=== PATIENT | male | born 1950 | race Caucasian/White ===

== ENCOUNTER 2018-07-20 10:33 | Inpatient (IN) | payer OTHER, SELFPAY ==
[2018-07-20] VITALS (16 sets, daily range): BP systolic 102–163; BP diastolic 46–83; PULSE 64–118; RESP 12–24; TEMP 36.3–39.3; O2SAT 91–97; BMI 30.4
--- NOTE | 2018-07-20 12:16 | PC.NURSE ---
pt reports, cramping lower abdominal pain while going to the bathroom, denies fever,vomiting, last bm yesterday. last voided at 8am. 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 denies injury or trauma hernia above umbilical, cholecystectomy, appendix, tonsillectomy.
--- NOTE | 2018-07-20 12:17 | ED_ITS ---
HPI - Abdominal Pain General Chief Complaint: Abdominal Pain Stated Complaint: CRAMPS,CONSTIPATION,NOT URINATING Time Seen by Provider: 07/20/18 11:47 Source: patient Mode of arrival: ambulatory Limitations: no limitations History of Present Illness HPI narrative: Patient is a 68-year-old male who presents with lower abdominal pain. He says he woke up this morning with it. It is sharp and stabbing in nature nonradiating. It crosses the whole abdomen. He did have a bowel movement yesterday thinks he might be constipated. No fever chills nausea or vomiting. Related Data Allergies Allergy/AdvReac Type Severity Reaction Status Date / Time No Known Drug Allergies Allergy Verified 07/20/18 10:41 Review of Systems Review of Systems ROS Unobtainable: All systems reviewed & are unremarkable except as noted in HPI and below Constitutional Denies chills, Denies fever(s), Denies lethargy and Denies weakness ENT Ears, Nose, Mouth, and Throat: Denies change in voice, Denies neck pain and Denies sore throat Cardiovascular Denies chest pain, Denies irregular heart rhythm, Denies lightheadedness, Denies palpitations, Denies dyspnea, Denies dyspnea on exertion and Denies orthopnea Respiratory Denies cough, Denies dyspnea, Denies dyspnea on exertion and Denies wheezing Gastrointestinal Gastrointestinal: Reports as per HPI Genitourinary Denies hematuria, Denies flank pain, Denies urinary incontinence and Denies urinary urgency Musculoskeletal Denies neck pain Integumentary/Breasts Denies pruritus, Denies erythema, Denies rash and Denies wounds Neurologic Denies weakness Endocrine Denies palpitations Allergic/Immunologic Denies wheezing [facility] Medical History Atrophic kidney, acquired (Acute) Benign prostatic hyperplasia (Acute) Diverticulitis (Acute) GERD (gastroesophageal reflux disease) (Acute) Hyperlipidemia (Acute) Kidney stones (Acute) Surgical History History of appendectomy (Acute) History of colonoscopy (Acute) History of umbilical hernia repair (Acute) Status post cholecystectomy (Acute) Social History Smoking Status: Former smoker Social History household members: significant other Smoking Status: Former smoker alcohol intake: never Exam Initial Vital Signs Initial Vital Signs: Vital Signs Temperature 97.3 F L 07/20/18 10:36 Pulse Rate 87 07/20/18 10:36 Respiratory Rate 17 07/20/18 10:36 Blood Pressure 146/83 H 07/20/18 10:36 Pulse Oximetry 97 07/20/18 10:36 GENERAL: Alert alert well-appearing male alert oriented x3 HEENT: Head atraumatic,EOMI, pupils reactive, CARDIOVASCULAR: Regular rate and rhythm without murmurs, rubs or gallops. RESPIRATORY: Breath sounds equal bilaterally, no wheezes rales or rhonchi. ABDOMEN: Soft, slightly distended lower abdominal tenderness no guarding no rebound : No CVA tenderness EXTREMITIES: Normal range of motion, no clubbing or edema. Neurovascularly intact NEUROLOGICAL: Alert and oriented x4.Normal gait and speech. SKIN: Warm, dry, no laceration, no petechiae, no rashes or lesions. Course Orders Ordered: ED Orders 07/20/18 12:37 CT abdomen pelvis w con Stat 07/20/18 12:40 UA Complete [Urinalysis and Microscopic] Stat 07/20/18 12:50 Complete Blood Count AUTO DIFF Stat Comprehensive Metabolic Panel Stat Lipase Stat 07/20/18 16:08 Education, smoking cessation ONGOING 07/20/18 16:13 Consult to Discharge Planning Routine 07/20/18 17:42 EKG-12 Lead Stat 07/21/18 XR abdomen min 2V Routine 07/21/18 05:00 Basic Metabolic Panel Routine Complete Blood Count AUTO DIFF Routine Acetaminophen (Tylenol) 650 mg PO Q6HR PRN PRN Reason: As Needed for Fever/Mild Pain Al Hydrox/Mg Hydrox/Simethicone (Maalox Plus) 30 ml PO Q6HR PRN PRN Reason: Dyspepsia Enoxaparin Sodium (Lovenox) 40 mg SUBCUT DAILY LENARD HYDROMORPHONE CIVIL DESIGNER (6MG/30ML) (Dilaudid Eyewear Manufacturing Tech (6mg/30ml)) 6 mg in 30 mls @ 0 mls/hr IV Q8HR PRN PRN Reason: Pain, Severe (7-10) Last Admin: 07/20/18 18:12 Dose: 0 mls/hr Sodium Chloride (Normal Saline 0.9%) 1,000 mls @ 100 mls/hr IV CONT LENARD Last Admin: 07/20/18 17:36 Dose: Not Given Piperacillin/Tazobactam/Dextrose (Zosyn) 3.375 gm in 50 mls @ 100 mls/hr IV Q6H LENARD Metronidazole (Flagyl) 500 mg in 100 mls @ 100 mls/hr IV Q8H LENARD Magnesium Hydroxide (Milk Of Magnesia) 30 ml PO DAILY PRN PRN Reason: Constipation Naloxone HCl (Narcan) 0.2 mg IV Q2MIN PRN; Protocol PRN Reason: Opiate Reversal Ondansetron HCl (Zofran) 4 mg IV Q6HR PRN PRN Reason: Nausea And Vomiting Discontinued Medications Sodium Chloride (Normal Saline 0.9%) 1,000 mls @ 150 mls/hr IV CONT LENARD Last Infusion: 07/20/18 16:58 Dose: 100 mls/hr Infusion: 07/20/18 16:45 Dose: 150 mls/hr Infusion: 07/20/18 14:00 Dose: 150 mls/hr Infusion: 07/20/18 13:46 Dose: 0 mls/hr Admin: 07/20/18 12:23 Dose: 150 mls/hr Piperacillin/Tazobactam/Dextrose (Zosyn) 3.375 gm in 50 mls @ 100 mls/hr IV NOW ONE Stop: 07/20/18 15:13 Last Infusion: 07/20/18 15:35 Dose: 0 mls/hr Admin: 07/20/18 15:02 Dose: 100 mls/hr Metronidazole (Flagyl) 500 mg in 100 mls @ 100 mls/hr IV NOW ONE Stop: 07/20/18 15:43 Last Infusion: 07/20/18 16:45 Dose: 0 mls/hr Admin: 07/20/18 15:49 Dose: 100 mls/hr Morphine Sulfate (Morphine) 2 mg IV NOW ONE Stop: 07/20/18 12:18 Last Admin: 07/20/18 12:23 Dose: 2 mg Morphine Sulfate (Morphine) 2 mg IV NOW ONE Stop: 07/20/18 15:07 Last Admin: 07/20/18 15:07 Dose: 2 mg Vital Signs - 8 hr 07/20/18 10:36 07/20/18 12:15 07/20/18 12:50 Temperature 97.3 F L Pulse Rate 87 70 72 Respiratory Rate 17 18 Blood Pressure 146/83 H Blood Pressure [Left Arm] 142/80 H 145/73 H Pulse Oximetry 97 95 97 07/20/18 13:00 07/20/18 13:30 07/20/18 14:18 Temperature Pulse Rate 67 64 88 Respiratory Rate 16 16 12 Blood Pressure Blood Pressure [Left Arm] 146/73 H 134/65 146/70 H Pulse Oximetry 97 97 96 07/20/18 15:00 07/20/18 16:00 07/20/18 17:22 Temperature 100.3 F H Pulse Rate 101 H 107 H 112 H Respiratory Rate 16 18 24 Blood Pressure 163/68 H Blood Pressure [Left Arm] 144/72 H 129/72 Pulse Oximetry 95 94 95 MDM - Abdominal Pain Lab Data Attestation: I reviewed the patient's lab results. Result diagrams: 07/20/18 12:50 07/20/18 12:50 Lab Results 07/20/18 07/20/18 07/20/18 Range/Units 12:40 12:50 12:50 WBC 13.9 H (4.5-11.0) X10^3/uL RBC 4.65 (4.5-5.9) X10^6/uL Hgb 13.9 (13.5-17.5) g/dL Hct 41.9 (41-53) % MCV 90.0 (80-100) fL MCH 29.8 (26-34) PG MCHC 33.1 (30-36) % RDW 14.5 (11.6-14.8) % Plt Count 220 (150-400) X10^3/uL Neut % (Auto) 84.2 H (50-75) % Lymph % (Auto) 9.2 L (25-40) % [place] % (Auto) 6.0 (3-14) % Eos % (Auto) 0.3 L (2-4) % Baso % (Auto) 0.3 (0-2) % Neut # (Auto) 56312 H (9655-5796) /uL Lymph # (Auto) 1300 (9643-2781) /uL [place] # (Auto) 800 (0-900) /uL Eos # (Auto) 0 (0-450) /uL Baso # (Auto) 0 (0-100) /uL Sodium 138 (137-145) mmol/L Potassium 4.6 (3.4-5.1) mmol/L Chloride 102 (98-107) mmol/L Carbon Dioxide 26 (22-32) mmol/L BUN 14 (9-20) mg/dL Creatinine 0.90 (0.66-1.25) mg/dL Estimated GFR > 60.0 (>60) mL/min BUN/Creatinine Ratio 15.6 (6-22) Glucose 104 (80-110) mg/dL Calcium 9.2 (8.4-10.2) mg/dL Total Bilirubin 0.4 (0.2-1.3) mg/dL AST 22 (17-59) IU/L ALT 26 (21-72) IU/L Alkaline Phosphatase 49 (38-126) U/L Total Protein 7.1 (6.3-8.2) g/dL Albumin 4.1 (3.5-5.0) g/dL Globulin 3.0 (1.7-4.1) g/dL Albumin/Globulin Ratio 1.4 (1.0-2.8) Lipase 20 L (23-300) U/L Urine Color Yellow Urine Appearance Clear Urine pH 7.0 (4.5-8.0) Ur Specific [place] 1.015 (1.000-1.035) Urine Protein Negative (Negative) Urine Glucose (UA) Negative (Negative) g/dL Urine Ketones Negative (NEGATIVE) Urine Occult Blood Negative (Negative) Urine Nitrate Negative (Negative) Urine Bilirubin Negative (NEGATIVE) Urine Urobilinogen 0.2 (0.2) E.U./dL Ur Leukocyte Esterase Negative (NEGATIVE) Urine RBC None seen (0-5/HPF) Urine WBC 0-1/hpf (0-5/HPF) Urine Bacteria Few (2-10) H (None) Ur Culture Indicated? Cult not indicated Imaging Data CT scan - abdomen: Radiologist's impression: PROCEDURE: CT ABDOMEN PELVIS W CON INDICATIONS: Lower abdominal pain since 0800 hrs this morning TECHNIQUE: After the administration of intravenous contrast, 5 mm thick sections acquired from the diaphragm to the symphysis. 5 mm coronal and sagittal reformats were acquired. For radiation dose reduction, the following was used: automated exposure control, adjustment of mA and/or kV according to patient size. COMPARISON: None. FINDINGS: Image quality: Excellent. ABDOMEN: Lung bases: Calcified pleural plaques are present bilaterally, in a distribution compatible with asbestos related pleural disease. Lung bases are otherwise clear. Heart size is normal. Solid organs: Liver is normal in size and enhancement. Gallbladder is surgically absent. Biliary system is non dilated. Pancreas enhances normally. Spleen is normal in size and enhancement. No adrenal nodules. Right kidney is within normal limits. Left kidney is not seen. Peritoneum and bowel: A small hiatal hernia is present. The small bowel is within normal limits. The appendix is normal. The colon demonstrates moderate diffuse stool, and is nondistended. Diverticulosis of the descending and sigmoid colon is present. At the left lateral aspect of the mid/distal sigmoid colon within the central pelvis, there is a 35 mm diameter stool collection, representing either a focal contained perforation, or a giant diverticulum. There is mild fat stranding and a small amount of adjacent fluid in this location, indicating surrounding inflammation. There is mild thickening of the sigmoid colon in this location. No free fluid or air. Nodes and vessels: No retroperitoneal or mesenteric adenopathy by size criteri a. Aorta and inferior vena cava are normal in size. Miscellaneous: No ventral hernias. PELVIS: Genitourinary: A Lee catheter is present. Miscellaneous: No inguinal hernias or adenopathy. Bones: No suspicious bony lesions. No vertebral body compression fractures. IMPRESSION: 1. Giant diverticulum of the sigmoid colon versus contained perforation of the sigmoid colon, with surrounding inflammation. 2. Sigmoid colonic thickening, consistent with diverticulitis. Followup colonoscopy is recommended to exclude underlying malignancy. 3. Small hiatal hernia. 4. Asbestos related pleural disease. 5. Findings discussed with Dr. Boswell on 07.20.18 at 1405 hrs. Dictated by: Travis Segura M.D. on 07/20/2018 at 14:03 MDM Narrative Medical decision making narrative: patient does seem quite stoic however morphine did he seem to help with his pain. CT reveals large diverticulitis versus contained perforation. I discussed case with surgery. Dr. Plata in the ED to see and evaluate patient . Recommend Joana Colon for antibiotics. Will likely need reimaging tomorrow to determine perforation versus large diverticuli. Discharge Plan Departure Patient Disposition: Admitted As Inpatient Clinical Impression: Diverticulitis Discharge Date/Time: 07/20/18 16:38 Interventions: ED Discharge Assessment Last Done: 07/20/18 16:36 Admit Date/Time: 07/20/18 14:58 Admit Provider: Kelby Plata
[2018-07-20] MEDS: SODIUM CHLORIDE 0.9% 1,000 ML 150 ML IV (12:23)
[2018-07-20] MEDS: MORPHINE 2 MG/ML INJ IV ×2 (12:23→15:07)
--- NOTE | 2018-07-20 12:37 | DI.CT.S_ITS ---
PROCEDURE: CT ABDOMEN PELVIS W CON INDICATIONS: Lower abdominal pain since 0800 hrs this morning TECHNIQUE: After the administration of intravenous contrast, 5 mm thick sections acquired from the diaphragm to the symphysis. 5 mm coronal and sagittal reformats were acquired. For radiation dose reduction, the following was used: automated exposure control, adjustment of mA and/or kV according to patient size. COMPARISON: None. FINDINGS: Image quality: Excellent. ABDOMEN: Lung bases: Calcified pleural plaques are present bilaterally, in a distribution compatible with asbestos related pleural disease. Lung bases are otherwise clear. Heart size is normal. Solid organs: Liver is normal in size and enhancement. Gallbladder is surgically absent. Biliary system is non dilated. Pancreas enhances normally. Spleen is normal in size and enhancement. No adrenal nodules. Right kidney is within normal limits. Left kidney is not seen. Peritoneum and bowel: A small hiatal hernia is present. The small bowel is within normal limits. The appendix is normal. The colon demonstrates moderate diffuse stool, and is nondistended. Diverticulosis of the descending and sigmoid colon is present. At the left lateral aspect of the mid/distal sigmoid colon within the central pelvis, there is a 35 mm diameter stool collection, representing either a focal contained perforation, or a giant diverticulum. There is mild fat stranding and a small amount of adjacent fluid in this location, indicating surrounding inflammation. There is mild thickening of the sigmoid colon in this location. No free fluid or air. Nodes and vessels: No retroperitoneal or mesenteric adenopathy by size criteria. Aorta and inferior vena cava are normal in size. Miscellaneous: No ventral hernias. PELVIS: Genitourinary: A Lee catheter is present. Miscellaneous: No inguinal hernias or adenopathy. Bones: No suspicious bony lesions. No vertebral body compression fractures. IMPRESSION: 1. Giant diverticulum of the sigmoid colon versus contained perforation of the sigmoid colon, with surrounding inflammation. 2. Sigmoid colonic thickening, consistent with diverticulitis. Followup colonoscopy is recommended to exclude underlying malignancy. 3. Small hiatal hernia. 4. Asbestos related pleural disease. 5. Findings discussed with Dr. Boswell on 07.20.18 at 1405 hrs. Dictated by: Travis Segura M.D. on 07/20/2018 at 14:03 Approved by: Travis Segura M.D. on 07/20/2018 at 14:11
[2018-07-20 13:01] LABS: Add Manual Diff / Slide Review NO; Basophils Absolute Auto 0 /uL (0-100); Basophils Percent Auto 0.3 % (0-2); Eosinophils Absolute Auto 0 /uL (0-450); Eosinophils Percent Auto 0.3 % (2-4); Hematocrit 41.9 % (41-53); Hemoglobin 13.9 g/dL (13.5-17.5); Lymphocytes Absolute Auto 1300 /uL (1100-4500); Lymphocytes Percent Auto 9.2 % (25-40); Mean Corpuscular HGB Conc 33.1 % (30-36); Mean Corpuscular Hemoglobin 29.8 PG (26-34); Monocytes Absolute Auto 800 /uL (0-900); Neutrophils Absolute Auto 11700 /uL (1500-7000); Neutrophils Percent Auto 84.2 % (50-75); Platelet Count 220 X10^3/uL (150-400); Red Blood Cell Count 4.65 X10^6/uL (4.5-5.9); Red Cell Distribution Width 14.5 % (11.6-14.8); White Blood Cell Count 13.9 X10^3/uL (4.5-11.0)
[2018-07-20 13:09] LABS: Alanine Aminotransferase 26 IU/L (21-72); Albumin 4.1 g/dL (3.5-5.0); Albumin Globulin Ratio 1.4 (1.0-2.8); Alkaline Phosphatase 49 U/L (38-126); Aspartate Aminotransferase 22 IU/L (17-59); BUN Creatinine Ratio 15.6 (6-22); Bilirubin Total 0.4 mg/dL (0.2-1.3); Blood Urea Nitrogen 14 mg/dL (9-20); Calcium 9.2 mg/dL (8.4-10.2); Carbon Dioxide 26 mmol/L (22-32); Chloride 102 mmol/L (98-107); Estimated Glomerular Filt Rate > 60.0 mL/min (>60); Glucose 104 mg/dL (80-110); HEMOLYSIS 24 (0-50); Lipase 20 U/L (23-300); Potassium 4.6 mmol/L (3.4-5.1); Sodium 138 mmol/L (137-145); Total Protein 7.1 g/dL (6.3-8.2)
[2018-07-20 13:48] LABS: Appearance Urine UA CLEAR; Bilirubin Urine UA NEGATIVE (NEGATIVE); Color Urine UA YELLOW; Glucose Urine UA NEGATIVE (Negative); Ketones Urine UA NEGATIVE (NEGATIVE); Leukocyte Esterase Urine UA NEGATIVE (NEGATIVE); Nitrite Urine UA NEGATIVE (Negative); Occult Blood Urine UA NEGATIVE (Negative); Protein Urine UA NEGATIVE (Negative); RBC Urine None Seen (0-5/HPF); Specific Gravity Urine UA 1.015 (1.000-1.035); Urobilinogen Urine UA 0.2 E.U./dL (0.2)
[2018-07-20 14:03] LABS: Bacteria Urine Few (2-10); WBC Urine 0-1/HPF (0-5/HPF)
[2018-07-20 14:04] LABS: Culture Indicated Urine Cult Not Indicated
--- NOTE | 2018-07-20 14:26 | PC.NURSE ---
last solid meal at 8am today.
[2018-07-20] MEDS: PIPERACILLIN-TAZO 3.375 GM/50 ML FROZ.PIGGY IV ×2 (15:02→22:12)
[2018-07-20] MEDS: metroNIDAZOLE 500 MG/100 ML PIGGYBACK 100 MG IV ×2 (15:49→23:48)
--- NOTE | 2018-07-20 16:31 | P.HP_ITS ---
History of Present Illness Date Patient Seen: 07/20/18 Time Patient Seen: 16:17 Chief complaint: CRAMPS,CONSTIPATION,NOT URINATING Narrative: 68-year-old male who was in his usual state of health this morning after an otherwise uneventful night sleep when he began to experience severe crampy bilateral lower quadrant abdominal pain. He awoke in drank his usual morning cup of coffee then ambulated to the bathroom for a bowel movement, but noticed that he was unable to pass flatus or stool at that time. In addition he also experienced acute urinary retention and was unable to empty his bladder. His pain became acutely more severe and progressed over the next 1-2 hours which prompted his presentation to the emergency department here at [facility]. Lee catheter was inserted at the time of admission with only about 200 cc of clear urine obtained. His pain persisted. On further history currently patient states that he is having no fever or chills. No chest pain or shortness of breath. Pain is described as quite constant throughout the lower pelvis but does not radiate to the back or down the legs. No groin pain. He has not passed any flatus at all since this morning. He is not currently nauseated. He has had no emesis. In fact, he would like something to drink and perhaps something like to eat. He does not feel subjectively distended throughout the abdomen. Nevertheless is pain has only improved to some extent with medications here in the emergency department. Pain increases slightly when he is ambulatory. No fever or rigors. He has never had any type of similar episodes in the past. Patient History Medical History Atrophic kidney, acquired (Acute) Benign prostatic hyperplasia (Acute) Diverticulitis (Acute) GERD (gastroesophageal reflux disease) (Acute) Hyperlipidemia (Acute) Kidney stones (Acute) Surgical History History of appendectomy (Acute) History of colonoscopy (Acute) History of umbilical hernia repair (Acute) Status post cholecystectomy (Acute) Social History Smoking Status: Former smoker Family & Social History Safety & Behavioral: Feels Safe in Current Yes Environment Been Physically Hurt or No Threatened By a Person Tobacco & Substance use: Smoking Status Former smoker alcohol intake frequency other Substance Use Type does not use Meds Allergies Allergy/AdvReac Type Severity Reaction Status Date / Time No Known Drug Allergies Allergy Verified 07/20/18 10:41 Review of Systems Review of Systems All systems reviewed & are unremarkable except as noted in HPI and below Exam Vital Signs (past 8 hours): - 07/20/18 10:36 07/20/18 12:50 07/20/18 14:18 Temperature 97.3 F L Pulse Rate 87 72 88 Respiratory Rate 17 12 Blood Pressure 146/83 H Blood Pressure [Left Arm] 145/73 H 146/70 H Pulse Oximetry 97 97 96 Oxygen Delivery Method Room Air Narrative Exam Narrative: Well-nourished well-developed male in no acute distress. Alert oriented x3. is at the bedside for my entire visit. Sclera nonicteric Neck is supple Chest clear to auscultation bilaterally with regular rate rhythm. No murmurs, gallops, rubs. No crackles or wheezes Abdomen is minimally distended but certainly not tympanitic. No masses. No hepatomegaly. No ascites. Well-healed periumbilical scar without obvious hernia. He is tender throughout the bilateral lower quadrants but more intensely on the left side. He does not have involuntary guarding or rebound however. Extremities show no clubbing or cyanosis Objective Labs Result Diagrams: 07/20/18 12:50 07/20/18 12:50 Labs: Laboratory Results - last 24 hr 07/20/18 07/20/18 07/20/18 12:40 12:50 12:50 WBC 13.9 H RBC 4.65 Hgb 13.9 Hct 41.9 MCV 90.0 MCH 29.8 MCHC 33.1 RDW 14.5 Plt Count 220 Neut % (Auto) 84.2 H Lymph % (Auto) 9.2 L [place] % (Auto) 6.0 Eos % (Auto) 0.3 L Baso % (Auto) 0.3 Neut # (Auto) 69861 H Lymph # (Auto) 1300 [place] # (Auto) 800 Eos # (Auto) 0 Baso # (Auto) 0 Sodium 138 Potassium 4.6 Chloride 102 Carbon Dioxide 26 BUN 14 Creatinine 0.90 Estimated GFR > 60.0 BUN/Creatinine Ratio 15.6 Glucose 104 Calcium 9.2 Total Bilirubin 0.4 AST 22 ALT 26 Alkaline Phosphatase 49 Total Protein 7.1 Albumin 4.1 Globulin 3.0 Albumin/Globulin Ratio 1.4 Lipase 20 L Urine Color Yellow Urine Appearance Clear Urine pH 7.0 Ur Specific [place] 1.015 Urine Protein Negative Urine Glucose (UA) Negative Urine Ketones Negative Urine Occult Blood Negative Urine Nitrate Negative Urine Bilirubin Negative Urine Urobilinogen 0.2 Ur Leukocyte Esterase Negative Urine RBC None seen Urine WBC 0-1/hpf Urine Bacteria Few (2-10) H Ur Culture Indicated? Cult not indicated I have personally reviewed his CT scan of the abdomen and pelvis done here in the emergency department with the staff radiologist. No free air. No hepatomegaly. No splenomegaly. No significant mesenteric or retroperitoneal lymphadenopathy. Atherosclerotic calcified disease of the aortoiliac system but with no significant stenoses. Left kidney is completely atrophic and essentially absent. Right kidney shows extrarenal pelvis with nonobstructing stone in the calyx. No free fluid. No abscess. Sigmoid colon is quite redundant with numerous diverticula. Mild mesenteric stranding. No air in the mesentery. Bladder has a Lee catheter in place with some air in the bladder consistent with catheterization. Immediately adjacent to the sigmoid colon overlying the dome of the bladder is a contained region of air that appears to be consistent with a large diverticulum or a confined perforation. Again, there is no air elsewhere. No abscess. No other abnormalities noted. Assessment & Plan Assessment & Plan narrative: 68-year-old male with acute sigmoid diverticulitis without obvious abscess or free perforation. No evidence of colovesical fistula. Urine in the Lee bag is completely clear and urinalysis was normal. At this time he has no evidence of obvious complicated diverticulitis, but the finding on the CT scan is somewhat concerning. He is otherwise afebrile and hemodynamically stable without evidence of sepsis. In addition, he has no evidence of peritonitis necessitating urgent laparotomy. Therefore, I have rec ommended that he be admitted for IV antibiotics. Unfortunately we will not be able to administer nephrotoxic medications given his single kidney. We will administer Zosyn and Flagyl and repeat CBC tomorrow. Repeat abdominal x-rays tomorrow. He has no indications for any interventional radiology procedures at this time. If his condition does not respond to the intravenous antibiotics then we will need to repeat his CT scan. I had a lengthy discussion with him regarding the pathophysiology of diverticulitis and natural history of such. He understands there is a possibility he will not respond to the above therapy despite adequate antibiotics at which point he would require laparotomy with colectomy. He also understands that there is a distinct possibility his condition could deteriorate and he would require more urgent surgery for colectomy and drainage. I also explained that he may respond to therapy and return home but in the short term have recurrent diverticulitis necessitating readmission and intervention at that time. Ideally he would respond to antibiotics and eventually be discharged home on an oral regimen with plans for follow-up colonoscopy and, if indicated, potential sigmoid colectomy electively within the next several months. I also clearly explained that should he require emergent surgery this admission that he would almost certainly require ostomy formation at the time of operation. At the very least she will require elective colonoscopy once the acute episode has resolved. All questions were answered to his satisfaction, and he voiced understanding. Orders were written. I anticipate that he will require at least a week in the hospital given the severity of his inflammation.
--- NOTE | 2018-07-20 17:48 | PC.NURSE ---
Addendum entered by Marcie Orellana R.N. 07/20/18 23:01: Approx an hour after admitted temp retaken =102.7, I then medicated him with 2 TYlenol and removed blankets, pt reluctant to have me remove blankets. Rationale explained. Temp retaken 1 hour after tylenol = 102.2. Dr Plata in room to assess patient x 2 since admitted to , aware of temperature and vitals. Last oral temp now 101.5. IV bolus infusing at 250/hour per new order, IV Zosyn infused. Pt still with flushed face, nose/brow diaphoretic. He reports pain 2 or 3, used 1.4 mg [employer] since set up. Reports feels better and able to doze off & on. Original Note: Admit note: Mc brought from ED via gurney, able to scoot himself from [facility], started having moderate full body tremor. Reported felt cold, warm blanket given, temp 100.3, HR regulark, tachycardic at 115 bpm, hypertensive 163/68. ER reported no fever, no tachycardia or hypertension in ER? Pt reports abdomen pain 3/10, much better he said. IV NS infusing at 100 ml/hour, 20 g to RAC is patent. RT now in room to do bedside EKG.
[2018-07-20] MEDS: HYDROMORPHONE PCA (6MG/30ML) 6 MG/30 ML PCA.VIAL IV (18:12)
[2018-07-20] MEDS: ACETAMINOPHEN 325 MG TABLET 650 MG PO (18:38)
--- NOTE | 2018-07-20 20:09 | PM.PN.1 ---
Subjective Date Patient Seen: 07/20/18 Time Patient Seen: 20:09 Interval history: Patient now has a temperature of 102.2? approximately. Earlier temperature was slightly elevated 100.3?. He has also developed sinus tachycardia to as high as 112 beats per minute now approximately 102 beats per minute. 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 No chest pain or shortness of breath. He does have some mild diaphoresis due to the fever. Otherwise he continues to ask for water and regular food to eat. No flatus. No bowel movement. Lee catheter remains in place draining clear yellow urine. Urine output is more than adequate. Exam Vital Signs (past 8 hours): - 07/20/18 12:15 07/20/18 12:50 07/20/18 13:00 Temperature Pulse Rate 70 72 67 Respiratory Rate 18 16 Blood Pressure Blood Pressure [Left Arm] 142/80 H 145/73 H 146/73 H Pulse Oximetry 95 97 97 07/20/18 13:30 07/20/18 14:18 07/20/18 15:00 Temperature Pulse Rate 64 88 101 H Respiratory Rate 16 12 16 Blood Pressure Blood Pressure [Left Arm] 134/65 146/70 H 144/72 H Pulse Oximetry 97 96 95 07/20/18 16:00 07/20/18 17:22 07/20/18 18:38 Temperature 100.3 F H 102.7 F H Pulse Rate 107 H 112 H Respiratory Rate 18 24 Blood Pressure 163/68 H Blood Pressure [Left Arm] 129/72 Pulse Oximetry 94 95 07/20/18 19:03 07/20/18 19:50 Temperature 102.7 F H 101.6 F H Pulse Rate 111 H 118 H Respiratory Rate 20 20 Blood Pressure 146/77 H 131/46 L Blood Pressure [Left Arm] Pulse Oximetry 91 91 Oxygen Delivery Method Room Air Narrative Exam Narrative: I have actually seen the patient twice since admission. I 1st saw him again at 6:00 p.m. and now again at 8:00 p.m. Alert and oriented x3. He appears mildly uncomfortable but in no acute distress. No tachypnea No crackles or wheezes abdomen remains mildly distended and firm but not rigid. He is soft but with ongoing moderate tenderness throughout the bilateral lower quadrants, left greater than right. Slightly tender in the periumbilical region as well. Again, he has no involuntary guarding or rebound tenderness. He is not particularly tympanitic. He does not have any evidence of peritoneal irritation with shaking of his pelvis or manipulation of his lower extremities Objective Labs Result Diagrams: 07/20/18 12:50 07/20/18 12:50 Labs: Laboratory Results - last 24 hr 07/20/18 07/20/18 07/20/18 12:40 12:50 12:50 WBC 13.9 H RBC 4.65 Hgb 13.9 Hct 41.9 MCV 90.0 MCH 29.8 MCHC 33.1 RDW 14.5 Plt Count 220 Neut % (Auto) 84.2 H Lymph % (Auto) 9.2 L [place] % (Auto) 6.0 Eos % (Auto) 0.3 L Baso % (Auto) 0.3 Neut # (Auto) 02758 H Lymph # (Auto) 1300 [place] # (Auto) 800 Eos # (Auto) 0 Baso # (Auto) 0 Sodium 138 Potassium 4.6 Chloride 102 Carbon Dioxide 26 BUN 14 Creatinine 0.90 Estimated GFR > 60.0 BUN/Creatinine Ratio 15.6 Glucose 104 Calcium 9.2 Total Bilirubin 0.4 AST 22 ALT 26 Alkaline Phosphatase 49 Total Protein 7.1 Albumin 4.1 Globulin 3.0 Albumin/Globulin Ratio 1.4 Lipase 20 L Urine Color Yellow Urine Appearance Clear Urine pH 7.0 Ur Specific [place] 1.015 Urine Protein Negative Urine Glucose (UA) Negative Urine Ketones Negative Urine Occult Blood Negative Urine Nitrate Negative Urine Bilirubin Negative Urine Urobilinogen 0.2 Ur Leukocyte Esterase Negative Urine RBC None seen Urine WBC 0-1/hpf Urine Bacteria Few (2-10) H Ur Culture Indicated? Cult not indicated Assessment & Plan Assessment & Plan narrative: 68-year-old male with fever and associated sinus tachycardia. EKG done 2 hr ago showed no acute changes. Tylenol has been given. Because he has a single kidney we must avoid potentially nephrotoxic medications such as Toradol, Advil, and aminoglycosides. He would not be a candidate for vancomycin either. If he requires repeat CT imaging we will need to be cautious with IV contrast. I will increase his hydration with fluid bolus currently and increase his IV fluid rate in light of his fever and single kidney. Continue to follow his examination And repeat laboratory studies tomorrow as planned. again, patient understands that if his condition deteriorates or he shows evidence of peritonitis that he will require laparotomy. All questions were answered to his satisfaction, and he voiced understanding. Case reviewed with the attending nurse. Orders written.
--- NOTE | 2018-07-20 20:16 | P.PN_ITS ---
Subjective Date Patient Seen: 07/20/18 Time Patient Seen: 20:09 Interval history: Patient now has a temperature of 102.2? approximately. Earlier temperature was slightly elevated 100.3?. He has also developed sinus tachycardia to as high as 112 beats per minute now approximately 102 beats per minute. 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 No chest pain or shortness of breath. He does have some mild diaphoresis due to the fever. Otherwise he continues to ask for water and regular food to eat. No flatus. No bowel movement. Lee catheter remains in place draining clear yellow urine. Urine output is more than adequate. Exam Vital Signs (past 8 hours): - 07/20/18 12:15 07/20/18 12:50 07/20/18 13:00 Temperature Pulse Rate 70 72 67 Respiratory Rate 18 16 Blood Pressure Blood Pressure [Left Arm] 142/80 H 145/73 H 146/73 H Pulse Oximetry 95 97 97 07/20/18 13:30 07/20/18 14:18 07/20/18 15:00 Temperature Pulse Rate 64 88 101 H Respiratory Rate 16 12 16 Blood Pressure Blood Pressure [Left Arm] 134/65 146/70 H 144/72 H Pulse Oximetry 97 96 95 07/20/18 16:00 07/20/18 17:22 07/20/18 18:38 Temperature 100.3 F H 102.7 F H Pulse Rate 107 H 112 H Respiratory Rate 18 24 Blood Pressure 163/68 H Blood Pressure [Left Arm] 129/72 Pulse Oximetry 94 95 07/20/18 19:03 07/20/18 19:50 Temperature 102.7 F H 101.6 F H Pulse Rate 111 H 118 H Respiratory Rate 20 20 Blood Pressure 146/77 H 131/46 L Blood Pressure [Left Arm] Pulse Oximetry 91 91 Oxygen Delivery Method Room Air Narrative Exam Narrative: I have actually seen the patient twice since admission. I 1st saw him again at 6:00 p.m. and now again at 8:00 p.m. Alert and oriented x3. He appears mildly uncomfortable but in no acute distress. No tachypnea No crackles or wheezes abdomen remains mildly distended and firm but not rigid. He is soft but with ongoing moderate tenderness throughout the bilateral lower quadrants, left greater than right. Slightly tender in the periumbilical region as well. Again, he has no involuntary guarding or rebound tenderness. He is not particu larly tympanitic. He does not have any evidence of peritoneal irritation with shaking of his pelvis or manipulation of his lower extremities Objective Labs Result Diagrams: 07/20/18 12:50 07/20/18 12:50 Labs: Laboratory Results - last 24 hr 07/20/18 07/20/18 07/20/18 12:40 12:50 12:50 WBC 13.9 H RBC 4.65 Hgb 13.9 Hct 41.9 MCV 90.0 MCH 29.8 MCHC 33.1 RDW 14.5 Plt Count 220 Neut % (Auto) 84.2 H Lymph % (Auto) 9.2 L [place] % (Auto) 6.0 Eos % (Auto) 0.3 L Baso % (Auto) 0.3 Neut # (Auto) 08154 H Lymph # (Auto) 1300 [place] # (Auto) 800 Eos # (Auto) 0 Baso # (Auto) 0 Sodium 138 Potassium 4.6 Chloride 102 Carbon Dioxide 26 BUN 14 Creatinine 0.90 Estimated GFR > 60.0 BUN/Creatinine Ratio 15.6 Glucose 104 Calcium 9.2 Total Bilirubin 0.4 AST 22 ALT 26 Alkaline Phosphatase 49 Total Protein 7.1 Albumin 4.1 Globulin 3.0 Albumin/Globulin Ratio 1.4 Lipase 20 L Urine Color Yellow Urine Appearance Clear Urine pH 7.0 Ur Specific [place] 1.015 Urine Protein Negative Urine Glucose (UA) Negative Urine Ketones Negative Urine Occult Blood Negative Urine Nitrate Negative Urine Bilirubin Negative Urine Urobilinogen 0.2 Ur Leukocyte Esterase Negative Urine RBC None seen Urine WBC 0-1/hpf Urine Bacteria Few (2-10) H Ur Culture Indicated? Cult not indicated Assessment & Plan Assessment & Plan narrative: 68-year-old male with fever and associated sinus tachycardia. EKG done 2 hr ago showed no acute changes. Tylenol has been given. Because he has a single kidney we must avoid potentially nephrotoxic medications such as Toradol, Advil, and aminoglycosides. He would not be a candidate for vancomycin either. If he requires repeat CT imaging we will need to be cautious with IV contrast. I will increase his hydration with fluid bolus currently and increase his IV fluid rate in light of his fever and single kidney. Continue to follow his examination And repeat laboratory studies tomorrow as planned. again, patient understands that if his condition deterior ates or he shows evidence of peritonitis that he will require laparotomy. All questions were answered to his satisfaction, and he voiced understanding. Case reviewed with the attending nurse. Orders written.
[2018-07-20] MEDS: SODIUM CHLORIDE 0.9% 1,000 ML 250 ML IV (20:22)
[2018-07-20] MEDS: TRIAMCINOLONE 0.1% CREAM 15 GM 1 APPLIC TOP (22:13)
[2018-07-21] VITALS (12 sets, daily range): BP systolic 118–125; BP diastolic 58–71; PULSE 80–90; RESP 16; TEMP 36.7–37.1; O2SAT 86–96; BMI 28.9
--- NOTE | 2018-07-21 | DI.RAD.S_ITS ---
PROCEDURE: XR ABDOMEN MIN 2V INDICATIONS: diverticulitis, pain TECHNIQUE: 2 views of the abdomen were acquired. COMPARISON: [facility], CT, CT ABDOMEN PELVIS W CON, 07/20/2018, 13:48. FINDINGS: Surgical changes and devices: None. Bowel: No pneumoperitoneum. The bowel gas pattern is normal. Soft tissues: No masses; visualized solid organ contours appear normal in size. No suspicious abdominal calcifications. Bones: No suspicious bony abnormalities. IMPRESSION: No acute intra-abdominal findings. Specifically, no sandro pneumoperitoneum is visualized in the setting of recently diagnosed perforated diverticulum. Dictated by: Pao Lorenzo M.D. on 07/21/2018 at 9:45 Approved by: Pao Lorenzo M.D. on 07/21/2018 at 9:47
--- NOTE | 2018-07-21 00:15 | PC.NURSE ---
Addendum entered by Jelena Escobar R.N. 07/21/18 03:33: Have been able to titrate back to 2L/min with sat remaining at 96% Original Note: Patient is alert and oriented. Breath sounds diminished but CTA with oxygen at 2L/min with sat of 94% at shift change but now down to 86% while asleep so O2 increased to 3L and will continue to titrate as needed; on continuous pulse oximeter. HRR but tachy in low 100's; telemetry reading was ST. Denies nausea. BT present and is passing a little flatus. Diffuse tenderness to palpation but abdomen remains soft. Indwelling catheter is patent. Able to turn self in bed. Reports prior to hospitalization did not have weakness or unsteadiness and did not use a device to ambulate. SCD's on. Fall risk score is moderate; bed alarm is activated. Previous fever but now afebrile. 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
[2018-07-21] MEDS: SODIUM CHLORIDE 0.9% 1,000 ML 125 ML IV ×3 (00:56→21:06)
[2018-07-21] MEDS: PIPERACILLIN-TAZO 3.375 GM/50 ML FROZ.PIGGY IV ×4 (02:54→21:15)
[2018-07-21 05:55] LABS: Add Manual Diff / Slide Review NO; Basophils Absolute Auto 100 /uL (0-100); Basophils Percent Auto 0.4 % (0-2); Eosinophils Absolute Auto 0 /uL (0-450); Eosinophils Percent Auto 0.2 % (2-4); Hematocrit 38.7 % (41-53); Hemoglobin 12.9 g/dL (13.5-17.5); Lymphocytes Absolute Auto 1300 /uL (1100-4500); Lymphocytes Percent Auto 6.9 % (25-40); Mean Corpuscular HGB Conc 33.2 % (30-36); Mean Corpuscular Hemoglobin 29.8 PG (26-34); Mean Corpuscular Volume 89.7 fL (80-100); Monocytes Absolute Auto 1100 /uL (0-900); Monocytes Percent Auto 5.8 % (3-14); Neutrophils Absolute Auto 15900 /uL (1500-7000); Neutrophils Percent Auto 86.7 % (50-75); Platelet Count 198 X10^3/uL (150-400); Red Blood Cell Count 4.32 X10^6/uL (4.5-5.9); Red Cell Distribution Width 14.7 % (11.6-14.8); White Blood Cell Count 18.3 X10^3/uL (4.5-11.0)
[2018-07-21 06:02] LABS: BUN Creatinine Ratio 12.7 (6-22); Blood Urea Nitrogen 14 mg/dL (9-20); Calcium 8.2 mg/dL (8.4-10.2); Carbon Dioxide 24 mmol/L (22-32); Chloride 105 mmol/L (98-107); Estimated Glomerular Filt Rate > 60.0 mL/min (>60); Glucose 102 mg/dL (80-110); HEMOLYSIS < 15 (0-50); Potassium 4.1 mmol/L (3.4-5.1); Sodium 137 mmol/L (137-145)
[2018-07-21] MEDS: metroNIDAZOLE 500 MG/100 ML PIGGYBACK 100 MG IV ×3 (08:06→23:57)
--- NOTE | 2018-07-21 08:45 | PM.PN.1 ---
Subjective Date Patient Seen: 07/21/18 Time Patient Seen: 08:45 Interval history: Patient states his pain is improved since yesterday. 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 No nausea or vomiting. No chest pain or shortness of breath. However, he did have some desaturations while sleeping consistent with his tobacco use and diverticulitis which makes it somewhat uncomfortable to breathe deeply. However his oxygen saturations currently are 95 and 96%. He is not tachypneic and he feels as if he is inspiring normally. Denies any further subjective fever or chills. No further diaphoresis. States he is beginning to pass some flatus. Remains mildly hungry. Exam Vital Signs (past 8 hours): - 07/21/18 04:00 Temperature 98.3 F Pulse Rate 80 Respiratory Rate 16 Blood Pressure 124/58 L Pulse Oximetry 96 Oxygen Delivery Method Nasal Cannula Oxygen Flow Rate 2 Narrative Exam Narrative: Patient lying in bed in no acute distress. He appears much more comfortable this morning. Alert and oriented x3. His fever curve broke last night and he has been afebrile throughout the evening on overnight shift. Tachycardia has also resolved with resolution of his fever. Current heart rate is in the 80s and sinus rhythm. Urine output remains more than adequate and urine is clear yellow in the bag. Chest clear to auscultation bilaterally although mildly diminished at the bases. No crackles or wheezes however. Regular rate and rhythm. No murmurs. Abdomen shows few hypoactive bowel sounds and he remains soft. He is not significantly distended. Not tympanitic. Remains tender in the bilateral lower quadrant region but more pronounced over the suprapubic area and toward the right lower quadrant. Certainly no signs of peritoneal irritation with shaking of the pelvis or manipulation of his lower extremities. No involuntary guarding or rebound. I appreciate no masses. Extremities show no clubbing, cyanosis, or edema Objective Labs Result Diagrams: 07/21/18 05:29 07/21/18 05:29 Labs: Laboratory Results - last 24 hr 07/20/18 07/20/18 07/20/18 12:40 12:50 12:50 WBC 13.9 H RBC 4.65 Hgb 13.9 Hct 41.9 MCV 90.0 MCH 29.8 MCHC 33.1 RDW 14.5 Plt Count 220 Neut % (Auto) 84.2 H Lymph % (Auto) 9.2 L [place] % (Auto) 6.0 Eos % (Auto) 0.3 L Baso % (Auto) 0.3 Neut # (Auto) 15097 H Lymph # (Auto) 1300 [place] # (Auto) 800 Eos # (Auto) 0 Baso # (Auto) 0 Sodium 138 Potassium 4.6 Chloride 102 Carbon Dioxide 26 BUN 14 Creatinine 0.90 Estimated GFR > 60.0 BUN/Creatinine Ratio 15.6 Glucose 104 Calcium 9.2 Total Bilirubin 0.4 AST 22 ALT 26 Alkaline Phosphatase 49 Total Protein 7.1 Albumin 4.1 Globulin 3.0 Albumin/Globulin Ratio 1.4 Lipase 20 L Urine Color Yellow Urine Appearance Clear Urine pH 7.0 Ur Specific [place] 1.015 Urine Protein Negative Urine Glucose (UA) Negative Urine Ketones Negative Urine Occult Blood Negative Urine Nitrate Negative Urine Bilirubin Negative Urine Urobilinogen 0.2 Ur Leukocyte Esterase Negative Urine RBC None seen Urine WBC 0-1/hpf Urine Bacteria Few (2-10) H Ur Culture Indicated? Cult not indicated 07/21/18 07/21/18 05:29 05:29 WBC 18.3 H RBC 4.32 L Hgb 12.9 L Hct 38.7 L MCV 89.7 MCH 29.8 MCHC 33.2 RDW 14.7 Plt Count 198 Neut % (Auto) 86.7 H Lymph % (Auto) 6.9 L [place] % (Auto) 5.8 Eos % (Auto) 0.2 L Baso % (Auto) 0.4 Neut # (Auto) 06798 H Lymph # (Auto) 1300 [place] # (Auto) 1100 H Eos # (Auto) 0 Baso # (Auto) 100 Sodium 137 Potassium 4.1 Chloride 105 Carbon Dioxide 24 BUN 14 Creatinine 1.10 Estimated GFR > 60.0 BUN/Creatinine Ratio 12.7 Glucose 102 Calcium 8.2 L Total Bilirubin AST ALT Alkaline Phosphatase Total Protein Albumin Globulin Albumin/Globulin Ratio Lipase Urine Color Urine Appearance Urine pH Ur Specific [place] Urine Protein Urine Glucose (UA) Urine Ketones Urine Occult Blood Urine Nitrate Urine Bilirubin Urine Urobilinogen Ur Leukocyte Esterase Urine RBC Urine WBC Urine Bacteria Ur Culture Indicated? Abdominal x-rays are still pending at the time my visit this morning. Assessment & Plan Assessment & Plan narrative: 68-year-old male with significant diverticulitis who currently is improved clinically. His fever has resolved as has his tachycardia, but his white blood cell count is more elevated today at 18,000. Otherwise his laboratory studies were unremarkable. We will continue Zosyn and Flagyl currently. If he has recurrent fever but without evidence of any other deterioration in his examination than likely expand his antibiotic coverage to include double coverage for enterococcus, such as linezolid. Again, we cannot use nephrotoxic medications such as vancomycin or gentamicin. Repeat his CBC and basic metabolic panel along with lactate level tomorrow. Encourage incentive spirometry and pulmonary toilet. Out of bed as much as possible. Physical therapy consulted. I will continue the Lee for now as he had significant urinary retention upon arrival secondary to diverticulitis and associated pelvic inflammation. Continue bowel rest with ice chips only for now. If he continues to improve and begins to have bowel function with flatus tomorrow then advanced to clear liquid diet. Currently I see no indications for acute surgical intervention, but we will continue to monitor him closely. Await x-ray results this morning as well. All questions answered to his satisfaction, and he voiced understanding. Orders written. Case reviewed with the attending nurse today.
[2018-07-21] MEDS: ENOXAPARIN 40 MG/0.4 ML SYRINGE SUBCUT (09:46)
[2018-07-21] MEDS: TRIAMCINOLONE 0.1% CREAM 15 GM 1 APPLIC TOP (09:50)
--- NOTE | 2018-07-21 12:41 | PC.NURSE ---
Patient pleasant and cooperative. at bedside assisting patient with care. Patient up with PT and ambulated in halls, states pain is better than yesterday but it was uncomfortable in chair so he got back to bed at this time. Lee remains intact as patient had retention/ trouble urinating yesterday, urine is clear/kayode. VSS, sinus rhythm noted on telemetry. Call light within reach, continue to monitor.
[2018-07-21] MEDS: MAG HYDROX/ALUM/SIMETH 30 ML UDC PO ×2 (13:17→23:59)
--- NOTE | 2018-07-21 13:56 | PT.IIE ---
Current Diagnoses Diverticulitis of large intestine without perforation or abscess without bleeding (07/20/18) Surgical History (Last Reviewed 07/20/18 @ 16:22 by Kelby Plata MD) History of appendectomy (Acute) History of colonoscopy (Acute) History of umbilical hernia repair (Acute) Status post cholecystectomy (Acute) Medical History (Last Reviewed 07/20/18 @ 16:22 by Kelby Plata MD) Atrophic kidney, acquired (Acute) Benign prostatic hyperplasia (Acute) Diverticulitis (Acute) GERD (gastroesophageal reflux disease) (Acute) Hyperlipidemia (Acute) Kidney stones (Acute) Physical Therapy Inpatient Evaluation/Re-Eval M1 PT/OT-IP Prior Functional Status Start: 07/21/18 12:48 Freq: NEEDED Status: Active Protocol: Document 07/21/18 12:49 [facility] (Rec: 07/21/18 13:56 [facility] [email or web address]) Medical Review Prior Functional Status Medical History Reviewed Yes Diet/Fluid Consistency NPO Mobility and Gait no assistive device Activities of Daily Living and IADL's I with ADL's Social History Household Members significant other Living Arrangements Apartment/Condo Employment Status Retired M2 PT-IP Current Condition Start: 07/21/18 12:48 Freq: NEEDED Status: Active Protocol: Document 07/21/18 12:49 [facility] (Rec: 07/21/18 13:56 [facility] [email or web address]) Physical Therapy Current Condition Current Condition Evaluation Date 07/21/18 Treatment Diagnosis diverticulitis, abdominal pain , constipation Onset Date 07/19/18 Weight Bearing Status Weight Bearing Status Full Weight Bearing M3 PT-IP Subjective Start: 07/21/18 12:48 Freq: NEEDED Status: Active Protocol: Document 07/21/18 12:49 [facility] (Rec: 07/21/18 13:56 [facility] [email or web address]) Subjective Physical Therapy Visit Type Type Initial Evaluation Visit Start Time 11:50 Visit Stop Time 12:20 Total Visit Minutes 30 Notes 68 year old male with new onset of abdominal pain, constipation, fever, and not able to void, significant diverticulitis who is improving clinically. PT ordered for patient to be out of bed as much as possible Physical Therapy Visit Comments Patient Comments the patient reports he has gotten up with his significant other and stood at the edge of the bed for approx 5 min around 11:00, he is willing to do PT. It still hurts to deep breath and he has pain with abdominal contraction Therapy Pain Assessment Pain When Pain Assessed During Exercise Pain Present Pain Present Pain Reported Location Lower Abdomen Description Acute Pain Management Techniques Re-positioning M4 PT-IP Mobility and Gait Start: 07/21/18 12:48 Freq: NEEDED Status: Active Protocol: Document 07/21/18 12:49 [facility] (Rec: 07/21/18 13:56 [facility] [email or web address]) PT-Bed Mobility Assessment Rolling Type of Rolling Log Rolling Supine to Sit Supine to Sit Standby Assistance Sit to Supine Sit to Supine Standby Assistance Scooting Scooting to Edge of Bed Standby Assistance PT-Transfer Assessment Sit to and From Stand Sit to and from Stand Contact Guard Assistance Equipment Transfer Assistive Device Gait Belt Orthotic/Prosthetic Devices or Brace: No Transfers Transfer Technique Stand Step Pivot Transfer Ability Level of Assist Contact Guard Assistance Gait Assessment Gait Gait Assistance Required: Contact Guard Assist Distance (Feet) 40 Able to Maintain Weight Bearing Status Yes During Gait Assistive Devices Assistive Device Gait Belt Orthotic/Prosthetic Devices or Brace: No Gait Deviations General Gait Pattern Decreased Stride Length Factors Limiting Gait Function Factors Limiting Gait Function Pain Respiratory Distress Comments Gait Comments O2 sats dropped from 94-91 with gait x40 feet, some c/o shortness of breath with gait, pain with abdominal contraction M5 PT-IP Objective Assessments Start: 07/21/18 12:48 Freq: NEEDED Status: Active Protocol: Document 07/21/18 12:49 [facility] (Rec: 07/21/18 13:56 [facility] [email or web address]) Gross Range of Motion Upper Extremity ROM Assessment Within Functional Limits Lower Extremity ROM Assessment Within Functional Limits Strength Upper Extremity Strength Assessment Within Functional Limits Lower Extremity Strength Assessment Within Functional Limits Coordination Assessment Gross Coordination Gross Coordination WNL Sensation Assessment Sensation Gross Sensation WNL Muscle Tone Muscle Tone WNL Yes Other Assessments Other Other Assessments pt is mainly limited by pain and shortness of breath at this point. He notes his pain level is decreased today overall but it still hurts when he tries to attempt a deep breath or perform a abdominal contraction. He did not experience increased pain with ambulation just some shortness of breath M6 PT-IP Treatment Start: 07/21/18 12:48 Freq: NEEDED Status: Active Protocol: Document 07/21/18 12:49 [facility] (Rec: 07/21/18 13:56 [facility] [email or web address]) Physical Therapy Treatment Exercises Exercises Ankle Pumps Education Education Provided Safety Brace Education Patient Caregiver M7 PT-IP Assessment and Plan Start: 07/21/18 12:48 Freq: NEEDED Status: Active Protocol: Document 07/21/18 12:49 [facility] (Rec: 07/21/18 13:56 [facility] [email or web address]) PT Summary Assessment and Plan Potential Rehabilitation Potential Excellent Status of Condition at Evaluation Stable Summary Impairments Pain Activity Tolerance Assessment Summary 68 year old male who was brought to ER with c/o cramps, constipation, not urinating, pain 07/20/18 but is now doing better and improving clinically. He tolerated PT today with some increased SOB and decrease in O2 sats to 91 with ambulation of 40 feet. Pain is increased with abdominal contraction and deep breath. Pt is CGA for ambulation and is SBA for all bed mobility. I attempted to have Mc sit in the bed side chair following treatment but this was too uncomfortable for him to sit reclined. He requested back to bed. His significant other is there with him and he has worked on standing at bedside prior to PT today with her. He was fatigued from the AM activity but tolerated PT. Goals Bed Mobility Goal Independent Transfer Goal Independent Gait Goal Independent Gait Distance 150 feet + Other Goals Mc is able to ambulate 150 feet + maintaining his O2 SATS Days to Meet Goals 3 Frequency of Treatment Frequency Of Treatment Once a Day Treatment Plan Physical Therapy Treatment Plan Bed Mobility Training Transfer Training Gait Training
--- NOTE | 2018-07-21 15:51 | CM.DANOTE ---
Patient is a 68 year old male who was admitted on 07/20/18 for Cramps/Not Urinating. Pt has [facility] for insurance and his PCP is not listed. EMR was reviewed. Per Surgeon, pt seems to have better pain management now and still has guevara and likely will try to advance his diet to clear liquids tomorrow. SW met bedside with pt and Sig Other Elisa and explained role and updated white board and pt confirms that he lives in [place] with his Sig Other/Life Partner Elisa and is Independent with ADL's at baseline. Pt denies any hx of HH or SNF and currently does not have DPOA. SW provided DPOA pwk and brochure and they plan to complete while pt is admitted to the hospital. Preference is to return home with Sig Other when medically stable and do not anticipate any SW needs but pt still needs to mobilize and advance his diet. Plan: SW to follow closely to determine if pt will be safe for d/c home with Sig Other when medically stable after he begins to advance his diet. SW to follow for any further identified discharge planning needs. FRANCES Jackson Discharge Planning/Care Management CM Discharge Assessment Start: 07/21/18 15:50 Freq: Status: Active Protocol: Document 07/21/18 15:50 BF (Rec: 07/21/18 15:51 BF [id number]) Discharge Planning Assessment Assigned Front Sight Attacher FRANCES Charles DPOA/Assigned Designee Name none Advance Directives? No Advance Directives on File family wants information History Provided By Patient Significant Other Medical Record Has Patient been admitted in last 30 No days? Prior Living Arrangements Apartment/Condo Household Members significant other Type of transporation used prior to Drives own vehicle admit Independent with ADL's Yes Is patient alert and oriented? Yes Caregiver for Another No Comment Waiting to see how pt tolerates advanced diet Barriers to Discharge No Discharge Plan Home Transportation Arrangement Sig Other can likely provide transport if safe for home Whiteboard Updated in Patient Room with Yes name and ext. # of Front Sight Attacher Review Status In Process Please Provide Date Initial DC 07/21/18 Assessment Was Performed Next Review Type Continued Stay Review
[2018-07-21] MEDS: PANTOPRAZOLE 40 MG VIAL IV (16:29)
[2018-07-22] VITALS (13 sets, daily range): BP systolic 108–144; BP diastolic 63–75; PULSE 85–95; RESP 12–18; TEMP 36.4–37.5; O2SAT 91–97
--- NOTE | 2018-07-22 01:00 | PC.NURSE ---
Addendum entered by Jelena Escobar R.N. 07/22/18 06:59: Complains of nausea this morning; sudden onset although now states his stomach has been bothering me all night. No emesis. Medicated with Zofran. Used 1.5mg of Dilaudid MAGISTRATE this shift but states has been using for hip pain not abdominal pain. Original Note: Patient is alert and oriented. Breath sounds diminished at bases but CTA. At shift change RA sat was 86% so oxygen restarted and currently on 1.5L/min per NC with sat of 97% so oxygen decreased to 1L/min and will continue to monitor on pulse oximetry and titrate as needed. HRR with telemetry reading of SR. Denies nausea. Is NPO except for sips/chips. Is having reflux symptoms so medicated with Maalox without relief but states sitting upright has helped; is scheduled to have Protonix again in a.m. BT present and is passing flatus. Still has some tenderness to palpation over suprapubic region of abdomen. Indwelling catheter is patent; urine is clear kayode. Complains of intermitted hip pain left > right. Has MAGISTRATE to use as needed. Remains afebrile. Able to turn himself in bed. Was out of bed with PT during day and states he feels no weakness or unsteadiness. SCD's applied at shift change. Fall risk score is moderate; bed alarm is activated.
[2018-07-22] MEDS: PIPERACILLIN-TAZO 3.375 GM/50 ML FROZ.PIGGY IV ×4 (02:40→22:30)
[2018-07-22] MEDS: HYDROMORPHONE PCA (6MG/30ML) 6 MG/30 ML PCA.VIAL IV (05:41)
[2018-07-22 06:10] LABS: Add Manual Diff / Slide Review NO; Basophils Absolute Auto 100 /uL (0-100); Basophils Percent Auto 0.5 % (0-2); Eosinophils Absolute Auto 100 /uL (0-450); Eosinophils Percent Auto 1.1 % (2-4); Hematocrit 36.5 % (41-53); Hemoglobin 12.1 g/dL (13.5-17.5); Lymphocytes Absolute Auto 1100 /uL (1100-4500); Mean Corpuscular HGB Conc 33.2 % (30-36); Mean Corpuscular Volume 90.3 fL (80-100); Monocytes Absolute Auto 800 /uL (0-900); Monocytes Percent Auto 6.1 % (3-14); Neutrophils Absolute Auto 11500 /uL (1500-7000); Neutrophils Percent Auto 84.3 % (50-75); Platelet Count 187 X10^3/uL (150-400); Red Blood Cell Count 4.04 X10^6/uL (4.5-5.9); Red Cell Distribution Width 14.4 % (11.6-14.8); White Blood Cell Count 13.6 X10^3/uL (4.5-11.0)
[2018-07-22 06:34] LABS: Lactate (Lactic Acid) 0.6 mmol/L (0.7-2.1)
[2018-07-22 06:37] LABS: BUN Creatinine Ratio 14.4 (6-22); Blood Urea Nitrogen 13 mg/dL (9-20); Carbon Dioxide 23 mmol/L (22-32); Chloride 104 mmol/L (98-107); Estimated Glomerular Filt Rate > 60.0 mL/min (>60); Glucose 82 mg/dL (80-110); HEMOLYSIS < 15 (0-50); Potassium 3.8 mmol/L (3.4-5.1); Sodium 137 mmol/L (137-145)
[2018-07-22] MEDS: SODIUM CHLORIDE 0.9% 1,000 ML 125 ML IV ×2 (06:48→15:48)
[2018-07-22] MEDS: ONDANSETRON 4 MG/2 ML INJ IV ×2 (06:56→15:42)
--- NOTE | 2018-07-22 09:01 | PM.PN.1 ---
Subjective Date Patient Seen: 07/22/18 Time Patient Seen: 09:01 Interval history: Patient's major complaint today is that of reflux and regurgitation. No nausea or vomiting. He does have baseline reflux at home for which he takes ranitidine. He is also complaining of bilateral hip pain due to longstanding history of osteoarthritis. He states he is actually using the Dilaudid RAILROAD COOK more for his hip pain and abdominal pain this morning. Nevertheless he continues to have some abdominal pain in the suprapubic region that he experiences mostly when he is up and ambulatory. Small amount of flatus but no bowel movement. Denies chest pain or shortness of breath. No subjective fever or chills. Exam Vital Signs (past 8 hours): - 07/22/18 03:05 07/22/18 06:17 07/22/18 07:00 Temperature 98.4 F Pulse Rate 95 H Respiratory Rate 16 Blood Pressure 131/71 Pulse Oximetry 95 93 92 07/22/18 08:00 07/22/18 08:50 Temperature 98.0 F Pulse Rate 91 H Respiratory Rate 16 Blood Pressure 108/69 Pulse Oximetry 92 92 Fraction of Inspired Oxygen 21 Oxygen Delivery Method Room Air Oxygen Flow Rate 0 Narrative Exam Narrative: Patient remains afebrile for over 24 hr now. No tachycardia. Room air saturation is now around 93%. He does dropped his saturations periodically while he is asleep at night. Normal blood pressure. Excellent urine output which remains clear in the Lee bag Chest clear to auscultation bilaterally with regular rate and rhythm. No murmurs. No crackles or wheezes. Abdomen shows few hypoactive bowel sounds. He has no progressive distention. He is not tympanitic. Remains tender in the suprapubic region mostly to the right of the midline at that level. No involuntary guarding or rebound however. Extremities show no clubbing or cyanosis Objective Labs Result Diagrams: 07/22/18 05:57 07/22/18 05:57 Labs: Laboratory Results - last 24 hr 07/22/18 07/22/18 07/22/18 05:57 05:57 05:57 WBC 13.6 H RBC 4.04 L Hgb 12.1 L Hct 36.5 L MCV 90.3 MCH 30.0 MCHC 33.2 RDW 14.4 Plt Count 187 Neut % (Auto) 84.3 H Lymph % (Auto) 8.0 L [place] % (Auto) 6.1 Eos % (Auto) 1.1 L Baso % (Auto) 0.5 Neut # (Auto) 88645 H Lymph # (Auto) 1100 [place] # (Auto) 800 Eos # (Auto) 100 Baso # (Auto) 100 Sodium 137 Potassium 3.8 Chloride 104 Carbon Dioxide 23 BUN 13 Creatinine 0.90 Estimated GFR > 60.0 BUN/Creatinine Ratio 14.4 Glucose 82 Lactate 0.6 L Calcium 8.0 L Lactate level is normal. White blood cell count is diminishing but not yet normal. Electrolytes and creatinine are unremarkable. Assessment & Plan Assessment & Plan narrative: 68-year-old male with diverticulitis slowly improving with intravenous antibiotics. I suspect that his reflux exacerbation is likely due to some gastric dysmotility secondary to the diverticulitis and associated small-bowel inflammation. Treat with proton pump inhibitor and histamine fransisca. I will allow him a clear liquid diet today but I suspect he will take only minimal amounts. I discussed this with him. Ambulate aggressively. Continue his pulmonary toilet and incentive spirometry. He may shower. Discontinue the Lee catheter. Continue the RAILROAD COOK current settings but decreased the normal saline infusion to 100 cc/hour. Repeat CBC tomorrow. We will continue to follow his examination and clinical status. Hopefully his diverticulitis will continue to slowly resolve with antibiotics, but I suspect this will take several more days at least. All questions were answered to his satisfaction, and he voiced understanding. Orders were written. Case reviewed with the attending nurse.
--- NOTE | 2018-07-22 09:06 | P.PN_ITS ---
Subjective Date Patient Seen: 07/22/18 Time Patient Seen: 09:01 Interval history: Patient's major complaint today is that of reflux and regurgitation. No nausea or vomiting. He does have baseline reflux at home for which he takes ranitidine. He is also complaining of bilateral hip pain due to longstanding history of osteoarthritis. He states he is actually using the Dilaudid PROFESSOR OF COMMUNICATION more for his hip pain and abdominal pain this morning. Nevertheless he continues to have some abdominal pain in the suprapubic region that he experiences mostly when he is up and ambulatory. Small amount of flatus but no bowel movement. Denies chest pain or shortness of breath. No subjective fever or chills. Exam Vital Signs (past 8 hours): - 07/22/18 03:05 07/22/18 06:17 07/22/18 07:00 Temperature 98.4 F Pulse Rate 95 H Respiratory Rate 16 Blood Pressure 131/71 Pulse Oximetry 95 93 92 07/22/18 08:00 07/22/18 08:50 Temperature 98.0 F Pulse Rate 91 H Respiratory Rate 16 Blood Pressure 108/69 Pulse Oximetry 92 92 Fraction of Inspired Oxygen 21 Oxygen Delivery Method Room Air Oxygen Flow Rate 0 Narrative Exam Narrative: Patient remains afebrile for over 24 hr now. No tachycardia. Room air saturation is now around 93%. He does dropped his saturations periodically while he is asleep at night. Normal blood pressure. Excellent urine output which remains clear in the Lee bag Chest clear to auscultation bilaterally with regular rate and rhythm. No murmurs. No crackles or wheezes. Abdomen shows few hypoactive bowel sounds. He has no progressive distention. He is not tympanitic. Remains tender in the suprapubic region mostly to the right of the midline at that level. No involuntary guarding or rebound however. Extremities show no clubbing or cyanosis Objective Labs Result Diagrams: 07/22/18 05:57 07/22/18 05:57 Labs: Laboratory Results - last 24 hr 07/22/18 07/22/18 07/22/18 05:57 05:57 05:57 WBC 13.6 H RBC 4.04 L Hgb 12.1 L Hct 36.5 L MCV 90.3 MCH 30.0 MCHC 33.2 RDW 14.4 Plt Count 187 Neut % (Auto) 84.3 H Lymph % (Auto) 8.0 L [place] % (Auto) 6.1 Eos % (Auto) 1.1 L Baso % (Auto) 0.5 Neut # (Auto) 82804 H Lymph # (Auto) 1100 [place] # (Auto) 800 Eos # (Auto) 100 Baso # (Auto) 100 Sodium 137 Potassium 3.8 Chloride 104 Carbon Dioxide 23 BUN 13 Creatinine 0.90 Estimated GFR > 60.0 BUN/Creatinine Ratio 14.4 Glucose 82 Lactate 0.6 L Calcium 8.0 L Lactate level is normal. White blood cell count is diminishing but not yet normal. Electrolytes and creatinine are unremarkable. Assessment & Plan Assessment & Plan narrative: 68-year-old male with diverticulitis slowly improving with intravenous antibiotics. I suspect that his reflux exacerbation is likely due to some gastric dysmotility secondary to the diverticulitis and associated small-bowel inflammation. Treat with proton pump inhibitor and histamine fransisca. I will allow him a clear liquid diet today but I suspect he will take only minimal amounts. I discussed this with him. Ambulate aggressi vely. Continue his pulmonary toilet and incentive spirometry. He may shower. Discontinue the Lee catheter. Continue the PROFESSOR OF COMMUNICATION current settings but decreased the normal saline infusion to 100 cc/hour. Repeat CBC tomorrow. We will continue to follow his examination and clinical status. Hopefully his diverticulitis will continue to slowly resolve with antibiotics, but I suspect this will take several more days at least. All questions were answered to his satisfaction, and he voiced understanding. Orders were written. Case reviewed with the attending nurse.
[2018-07-22] MEDS: PANTOPRAZOLE 40 MG VIAL IV ×2 (09:22→20:58)
[2018-07-22] MEDS: metroNIDAZOLE 500 MG/100 ML PIGGYBACK 100 MG IV ×3 (09:22→23:31)
[2018-07-22] MEDS: TRIAMCINOLONE 0.1% CREAM 15 GM 1 APPLIC TOP ×2 (09:42→20:57)
--- NOTE | 2018-07-22 10:40 | PT.IPTN ---
Current Diagnoses Diverticulitis of large intestine without perforation or abscess without bleeding (07/20/18) Physical Therapy Treatment Note M2 PT-IP Current Condition Start: 07/21/18 12:48 Freq: NEEDED Status: Active Protocol: Document 07/21/18 12:49 AMH (Rec: 07/21/18 13:56 AMH [id number]) Physical Therapy Current Condition Current Condition Evaluation Date 07/21/18 Treatment Diagnosis diverticulitis, abdominal pain , constipation Onset Date 07/19/18 Weight Bearing Status Weight Bearing Status Full Weight Bearing M3 PT-IP Subjective Start: 07/21/18 12:48 Freq: NEEDED Status: Active Protocol: Document 07/22/18 11:01 GGD (Rec: 07/22/18 11:16 GGD [id number]) Subjective Physical Therapy Visit Type Type Treatment Note Visit Start Time 10:20 Visit Stop Time 10:40 Total Visit Minutes 20 Number of TIMBER MANAGEMENT ASSISTANT Visits 1 Physical Therapy Visit Comments Patient Comments Pt states he would like to walk. M4 PT-IP Mobility and Gait Start: 07/21/18 12:48 Freq: NEEDED Status: Active Protocol: Document 07/22/18 11:01 GGD (Rec: 07/22/18 11:16 GGD [id number]) PT-Bed Mobility Assessment Rolling Type of Rolling Log Rolling Supine to Sit Supine to Sit Standby Assistance Sit to Supine Sit to Supine Standby Assistance Scooting Scooting to Edge of Bed Standby Assistance PT-Transfer Assessment Sit to and From Stand Sit to and from Stand Standby Assistance Equipment Transfer Assistive Device None Gait Belt Orthotic/Prosthetic Devices or Brace: No Transfers Transfer Destination Chair Transfer Ability Level of Assist Independent Gait Assessment Gait Gait Assistance Required: Standby Assistance Distance (Feet) 280 Able to Maintain Weight Bearing Status Yes During Gait Assistive Devices Assistive Device Gait Belt Orthotic/Prosthetic Devices or Brace: No Gait Deviations General Gait Pattern Decreased Stride Length Factors Limiting Gait Function Factors Limiting Gait Function Pain M5 PT-IP Objective Assessments Start: 07/21/18 12:48 Freq: NEEDED Status: Active Protocol: Document 07/21/18 12:49 AMH (Rec: 07/21/18 13:56 AMH [email or web address]) Gross Range of Motion Upper Extremity ROM Assessment Within Functional Limits Lower Extremity ROM Assessment Within Functional Limits Strength Upper Extremity Strength Assessment Within Functional Limits Lower Extremity Strength Assessment Within Functional Limits Coordination Assessment Gross Coordination Gross Coordination WNL Sensation Assessment Sensation Gross Sensation WNL Muscle Tone Muscle Tone WNL Yes Other Assessments Other Other Assessments pt is mainly limited by pain and shortness of breath at this point. He notes his pain level is decreased today overall but it still hurts when he tries to attempt a deep breath or perform a abdominal contraction. He did not experience increased pain with ambulation just some shortness of breath M6 PT-IP Treatment Start: 07/21/18 12:48 Freq: NEEDED Status: Active Protocol: Document 07/21/18 12:49 AMH (Rec: 07/21/18 13:56 AMH [email or web address]) Physical Therapy Treatment Exercises Exercises Ankle Pumps Education Education Provided Safety Brace Education Patient Caregiver M7 PT-IP Assessment and Plan Start: 07/21/18 12:48 Freq: NEEDED Status: Active Protocol: Document 07/22/18 11:01 GGD (Rec: 07/22/18 11:16 GGD [id number]) PT Summary Assessment and Plan Summary Assessment Summary Pt improving with mobility. He was able to progress gait distance. He had no LOB with gait. He is safe for home D/C when medically stable. He has no need for continued PT as he is ambulating without AD and independent with bed mobility. Frequency of Treatment Frequency Of Treatment Discharge
[2018-07-22] MEDS: CALCIUM CARBONATE 500 MG TAB 1000 MG PO ×2 (12:33→21:00)
--- NOTE | 2018-07-22 12:34 | PC.NURSE ---
Addendum entered by Lucretia Quezada R.N. 07/22/18 15:58: Tele d/c Original Note: Addendum entered by Lucretia Quezada R.N. 07/22/18 15:49: Pt continues with GERD complaints Sky from Pharmacy looking into alternatives, but Pt is maxed out onh2 and ppI Original Note: Am shift Pt's biggest complaint has been GERD symptoms, persistant after adding home Raniadine, IV Protnix, and Tums PRN. Malox has also been ineffective. Unable to really advance diet, as sips just exacerbate current symptoms. Up to shower, and reports that i s helpful.
[2018-07-22] MEDS: LATANOPROST 0.005% OPHTH 2.5 ML 1 DROPS EYE-BOTH (20:57)
[2018-07-22] MEDS: ENOXAPARIN 40 MG/0.4 ML SYRINGE SUBCUT (20:57)
--- NOTE | 2018-07-22 23:42 | PC.NURSE ---
Addendum entered by Jelena Escobar R.N. 07/23/18 06:02: Complains of 4/10 headache so medicated with Tylenol. Still having GERD symptoms but not currently nauseated. Original Note: Patient is alert and oriented. Breath sounds with inspiratory crackles in right LL; reminded to use I.S. when awake and cough. HRR. Denies nausea but having reflux symptoms unrelieved by ordered medications; sitting upright to help alleviate discomfort. BT present; passing flatus but not as much. Abdomen is soft, distended and tender especially in suprapubic area. Indwelling catheter is patent. Moves self in bed. Wearing bilateral SCD's. Continues to refuse to have RN look at rash but denies itching, burning or discomfort from rash. Denies current pain but has SHOP MANAGER to use as needed. Fall risk score is moderate; bed alarm is activated.
[2018-07-23] VITALS (7 sets, daily range): BP systolic 135–143; BP diastolic 71–81; PULSE 68–80; RESP 16–20; TEMP 36.6–36.8; O2SAT 91–97
--- NOTE | 2018-07-23 | DI.RAD.S_ITS ---
PROCEDURE: XR ACUTE ABDOMEN SERIES INDICATIONS: nausea, distension, diverticulitis TECHNIQUE: One view chest and two views of the abdomen were acquired. COMPARISON: None. FINDINGS: Surgical changes and devices: Right upper quadrant surgical clips.. Chest: No acute consolidation. Scattered subsegmental atelectasis and/or scarring. Heart size is normal. No pleural effusions. No pneumoperitoneum. Abdomen: Bowel gas pattern is normal. No suspicious calcifications. Visualized solid organ contours appear normal. Nonspecific scattered air-fluid levels Bones: No suspicious bony lesions. IMPRESSION: No evidence of bowel obstruction or free air. Dictated by: Yinka Donahue M.D. on 07/23/2018 at 9:17 Approved by: Yinka Donahue M.D. on 07/23/2018 at 9:20
[2018-07-23] MEDS: PIPERACILLIN-TAZO 3.375 GM/50 ML FROZ.PIGGY IV ×4 (03:30→21:16)
[2018-07-23] MEDS: SODIUM CHLORIDE 0.9% 1,000 ML 100 ML IV (04:56)
[2018-07-23] MEDS: ACETAMINOPHEN 325 MG TABLET 650 MG PO (06:00)
[2018-07-23 06:01] LABS: Add Manual Diff / Slide Review NO; Basophils Absolute Auto 0 /uL (0-100); Basophils Percent Auto 0.3 % (0-2); Eosinophils Absolute Auto 200 /uL (0-450); Eosinophils Percent Auto 1.6 % (2-4); Hematocrit 34.7 % (41-53); Hemoglobin 11.7 g/dL (13.5-17.5); Lymphocytes Absolute Auto 1200 /uL (1100-4500); Lymphocytes Percent Auto 11.6 % (25-40); Mean Corpuscular HGB Conc 33.8 % (30-36); Mean Corpuscular Hemoglobin 30.5 PG (26-34); Mean Corpuscular Volume 90.3 fL (80-100); Monocytes Absolute Auto 800 /uL (0-900); Monocytes Percent Auto 7.6 % (3-14); Neutrophils Absolute Auto 8300 /uL (1500-7000); Neutrophils Percent Auto 78.9 % (50-75); Platelet Count 161 X10^3/uL (150-400); Red Blood Cell Count 3.84 X10^6/uL (4.5-5.9); Red Cell Distribution Width 14.5 % (11.6-14.8); White Blood Cell Count 10.5 X10^3/uL (4.5-11.0)
[2018-07-23] MEDS: SODIUM BICARB IV ×2 (08:34→21:13)
[2018-07-23] MEDS: [UNRECOGNIZED DRUG - OTHER] IV ×2 (08:34→21:13)
[2018-07-23] MEDS: DEXTROSE IV ×2 (08:34→21:13)
[2018-07-23] MEDS: metroNIDAZOLE 500 MG/100 ML PIGGYBACK 100 MG IV ×2 (08:45→15:57)
[2018-07-23] MEDS: PANTOPRAZOLE 40 MG VIAL IV ×2 (08:58→21:14)
[2018-07-23] MEDS: ENOXAPARIN 40 MG/0.4 ML SYRINGE SUBCUT (08:58)
[2018-07-23] MEDS: TRIAMCINOLONE 0.1% CREAM 15 GM 1 APPLIC TOP ×2 (10:03→21:15)
--- NOTE | 2018-07-23 10:53 | PM.PN.1 ---
Subjective Date Patient Seen: 07/23/18 Time Patient Seen: 10:53 Interval history: His reflux and nausea are much improved today. He is not having as much retrosternal burning from the stomach acid today. Still not particularly hungry but is mildly thirsty. Unfortunately, his Lee catheter had to be replaced last evening as he was unable to urinate spontaneously. Pain is improved and still well controlled with GUIDE WINDER. He is passing a minimal amount of flatus. No bowel function as yet. No subjective fever or chills. No chest pain or shortness of breath. He has been out of bed without difficulty. Exam Vital Signs (past 8 hours): - 07/23/18 06:12 07/23/18 10:00 Temperature 98.1 F 98.1 F Pulse Rate 80 77 Respiratory Rate 16 16 Blood Pressure 135/71 140/75 Pulse Oximetry 91 93 Fraction of Inspired Oxygen 21 Oxygen Delivery Method Room Air Oxygen Flow Rate 0 Narrative Exam Narrative: Well-nourished well-developed male sitting comfortably in bed in no acute distress. Alert oriented x3. He remains afebrile without tachycardia. Blood pressure is normal. Chest clear to auscultation bilaterally with regular rate rhythm. No murmurs. No crackles or wheezes. Abdomen is soft and mildly distended but not tympanitic. No significant change from yesterday. He does have a few hypoactive bowel sounds. He remains tender in the right lower quadrant region just to the right of midline in the suprapubic area. No involuntary guarding or rebound however. No masses. He is essentially nontender elsewhere which is an improvement compared to his initial examination at admission. Extremities show no clubbing, cyanosis, or edema Objective Labs Result Diagrams: 07/23/18 05:33 07/22/18 05:57 Labs: Laboratory Results - last 24 hr 07/23/18 05:33 WBC 10.5 RBC 3.84 L Hgb 11.7 L Hct 34.7 L MCV 90.3 MCH 30.5 MCHC 33.8 RDW 14.5 Plt Count 161 Neut % (Auto) 78.9 H Lymph % (Auto) 11.6 L [place] % (Auto) 7.6 Eos % (Auto) 1.6 L Baso % (Auto) 0.3 Neut # (Auto) 8300 H Lymph # (Auto) 1200 [place] # (Auto) 800 Eos # (Auto) 200 Baso # (Auto) 0 White blood cell count is now normalized. Hemoglobin remained stable. No new electrolytes studies today. Abdominal x-ray series is completed today and I have personally reviewed the films. He has no free air. No pulmonary infiltrates or effusions. Otherwise nonspecific bowel gas pattern with air throughout the colon to the rectum. No dilated small bowel or air-fluid levels. Assessment & Plan Assessment & Plan narrative: 68-year-old male with slowly resolving diverticulitis of the sigmoid colon. He has no evidence of any other complications at the moment. He continues to slowly improve as anticipated in response to intravenous antibiotics. Urinary retention is not unanticipated given his known benign prostatic hypertrophy for which he normally takes tamsulosin but has been unable to do so since admission due to his NPO status. In addition, he has significant inflammation adjacent to the bladder due to the diverticulitis which is also causing issues with retention. We will maintain the Lee for now until he begins to improve clinically otherwise. We will not advance his diet at this point in order to avoid further nausea and vomiting that he experienced yesterday. Hopefully he will be ready for clear liquids within the next 24-48 hours. If not, then we may have to consider PICC line and TPN support. Sodium bicarbonate has been added to his IV fluids in lieu of his inability to tolerate oral potassium citrate which he normally takes for the prevention of kidney stones. I discussed this with him today. All questions were answered his satisfaction, and he voiced understanding. Orders were written.
--- NOTE | 2018-07-23 12:08 | PC.NURSE ---
Antonio has been freely amb. in halls this AM with accompanying. He denies abd. pain at this time. He is taking sm. amts. of clear liq. diet. He states his heartburn is now under control. Short episode of hiccups which spontaneously resolved. No BM, report some flatus. BTs present. Abd. somewhat distended. Labs improving. VSS. Antonio states he feels much better than yesterday.
--- NOTE | 2018-07-23 13:45 | PC.NURSE ---
Antonio was just able to have a normal-appearing, soft brown med. size BM. Denies pain at this time.
[2018-07-23] MEDS: LATANOPROST 0.005% OPHTH 2.5 ML 1 DROPS EYE-BOTH (21:15)
[2018-07-24] VITALS (10 sets, daily range): BP systolic 115–155; BP diastolic 65–76; PULSE 52–67; RESP 16–20; TEMP 36.3–37.2; O2SAT 93–98
[2018-07-24] MEDS: metroNIDAZOLE 500 MG/100 ML PIGGYBACK 100 MG IV ×3 (00:11→15:00)
--- NOTE | 2018-07-24 00:19 | PC.NURSE ---
Addendum entered by Song Jurado R.N. 07/24/18 04:53: 0345: Awake, up to bathroom and had loose bowel movement. Pt requested to take a shower after; assisted to take shower. Linen changed, clean gown on. Original Note: Recording Studio Set Up Worker Note: 0010: Awake, resting in bed. Vital signs stable. IV in place in rt AC with D5 1/2NS/Bicarb infusing at 100cc/hr. Dilaudid MATERIAL HANDLING SUPERVISOR in line, current settings 0.2/02/13. Pt denies pain at this time.
[2018-07-24] MEDS: PIPERACILLIN-TAZO 3.375 GM/50 ML FROZ.PIGGY IV ×4 (02:54→20:14)
[2018-07-24] MEDS: ENOXAPARIN 40 MG/0.4 ML SYRINGE SUBCUT (09:04)
[2018-07-24] MEDS: PANTOPRAZOLE 40 MG VIAL IV (09:04)
[2018-07-24] MEDS: TRIAMCINOLONE 0.1% CREAM 15 GM 1 APPLIC TOP ×2 (09:06→20:17)
[2018-07-24] MEDS: [UNRECOGNIZED DRUG - OTHER] IV (09:06)
[2018-07-24] MEDS: SODIUM BICARB IV (09:06)
[2018-07-24] MEDS: DEXTROSE IV (09:06)
--- NOTE | 2018-07-24 10:20 | PM.PN.1 ---
Subjective Date Patient Seen: 07/24/18 Time Patient Seen: 10:20 Interval history: Patient denies nausea vomiting. No subjective fever chills. His pain is much improved. He is ambulating much better about the unit without any issues. States his pain really is only exacerbated in the suprapubic area where he bends over at the waist. Appetite is returning. He wishes to have something more than clear liquids. He is now having flatus and passing stool. Feels much subjectively less distended. No chest pain or shortness of breath. Overall, he is feeling much better since admission. Exam Vital Signs (past 8 hours): - 07/24/18 04:00 07/24/18 07:30 07/24/18 09:02 Temperature 97.6 F 97.3 F L Pulse Rate 52 L 54 L Respiratory Rate 18 16 Blood Pressure 115/65 121/68 Pulse Oximetry 95 94 94 07/24/18 09:29 Temperature Pulse Rate Respiratory Rate Blood Pressure Pulse Oximetry 96 Fraction of Inspired Oxygen 21 Oxygen Delivery Method Room Air Oxygen Flow Rate 0 Narrative Exam Narrative: Well-nourished well-developed male in no acute distress lying comfortably in bed. Alert oriented x3. He is in good spirits. His is at the bedside for my entire visit today. Sclera nonicteric Chest clear to auscultation. No wheezes Abdomen is soft and much less distended. He is not tympanitic. No masses. He remains focally tender in the suprapubic region just to the right of midline but certainly with no palpable mass or guarding or rebound. In fact, he is much less tender today than yesterday. He is completely nontender elsewhere in the abdomen. Lee catheter remains in place draining clear urine Extremities no clubbing, cyanosis, or edema Objective Labs Result Diagrams: 07/23/18 05:33 07/22/18 05:57 Labs: No new radiographic or laboratory studies for review today Assessment & Plan Assessment & Plan narrative: 68-year-old male with diverticulitis now improving on intravenous Zosyn and Flagyl. He is now day 4 of antibiotics. We will continue these for at least 7 days then convert to oral antibiotics given the severity of his disease. I would anticipate a 2 week course of antibiotics to continue in the outpatient setting. He may be stable for discharge later next week perhaps in another 3 or 4 days from now. I will advance him to full liquid diet. If he tolerates this well today then potentially moved to low residue diet tomorrow. Resume all normal home medications by mouth. Convert to oral analgesia. Continue bowel regimen. As he continues to clinically improve and after 2 doses of his doxazosin we will attempt to remove the Lee catheter again and hopefully avoid any further issues with urinary retention. I discussed this with him today. We will repeat his laboratory studies tomorrow, and if these are completely normal that I suspect he will not require any further laboratory or radiographic studies in the absence of any new symptoms or clinical issues. At some point he will require full colonoscopy in about 6 or 8 weeks after the acute episode. Again, I discussed this with him and he voiced understanding. All questions were answered to his satisfaction. Orders were written.
--- NOTE | 2018-07-24 10:32 | CM.DPNOTE ---
Chart Review: According to Dr Plata's prog note 3.16.19, pt now on day 4 of IV Zosyn and Flagyl. It is anticipated that he will continue w/ a 7 day IV abx course and hopefully DC home on po later next week. Pt is encouraged to ambulate and diet will be advanced per Dr Plata's orders and pt's ability to tolerate advancement. P: DCP remains home w/ S.O. when medically cleared per general surgery. [facility] team will continue to follow along and remain available in case any DC needs or concerns arise. FRANCES Ge
[2018-07-24] MEDS: DOXAZOSIN 4 MG TABLET 8 MG PO (11:37)
[2018-07-24] MEDS: SODIUM CHLORIDE 0.9% 500 ML 21 ML IV (11:37)
[2018-07-24] MEDS: SIMVASTATIN 40 MG TABLET PO (16:58)
[2018-07-24] MEDS: POTASSIUM CITRATE PO ×2 (16:59→20:15)
[2018-07-24] MEDS: LATANOPROST 0.005% OPHTH 2.5 ML 1 DROPS EYE-BOTH (20:17)
[2018-07-25] VITALS (8 sets, daily range): BP systolic 127–154; BP diastolic 68–90; PULSE 54–79; RESP 16–20; TEMP 36.3–37; O2SAT 93–99
[2018-07-25] MEDS: metroNIDAZOLE 500 MG/100 ML PIGGYBACK 100 MG IV ×3 (00:18→16:08)
--- NOTE | 2018-07-25 00:38 | PC.NURSE ---
Buttonholer Note: 0000: Awake, resting in bed. No complaint of pain at this time. IV in place in lt wrist. Vital signs stable. Pt requests door to be open, and wants to sleep.
[2018-07-25] MEDS: PIPERACILLIN-TAZO 3.375 GM/50 ML FROZ.PIGGY IV ×4 (03:24→21:30)
[2018-07-25 06:08] LABS: Add Manual Diff / Slide Review NO; Basophils Absolute Auto 100 /uL (0-100); Basophils Percent Auto 0.9 % (0-2); Eosinophils Absolute Auto 300 /uL (0-450); Hematocrit 36.4 % (41-53); Hemoglobin 12.2 g/dL (13.5-17.5); Lymphocytes Absolute Auto 1100 /uL (1100-4500); Lymphocytes Percent Auto 16.5 % (25-40); Mean Corpuscular HGB Conc 33.6 % (30-36); Mean Corpuscular Volume 89.3 fL (80-100); Monocytes Absolute Auto 700 /uL (0-900); Monocytes Percent Auto 10.8 % (3-14); Neutrophils Absolute Auto 4500 /uL (1500-7000); Neutrophils Percent Auto 67.8 % (50-75); Platelet Count 186 X10^3/uL (150-400); Red Blood Cell Count 4.07 X10^6/uL (4.5-5.9); Red Cell Distribution Width 14.5 % (11.6-14.8); White Blood Cell Count 6.6 X10^3/uL (4.5-11.0)
[2018-07-25 06:11] LABS: BUN Creatinine Ratio 6.3 (6-22); Blood Urea Nitrogen 5 mg/dL (9-20); Calcium 8.3 mg/dL (8.4-10.2); Carbon Dioxide 27 mmol/L (22-32); Chloride 106 mmol/L (98-107); Estimated Glomerular Filt Rate > 60.0 mL/min (>60); Glucose 98 mg/dL (80-110); HEMOLYSIS < 15 (0-50); Potassium 3.6 mmol/L (3.4-5.1); Sodium 139 mmol/L (137-145)
[2018-07-25] MEDS: DOXAZOSIN 4 MG TABLET 8 MG PO (08:30)
[2018-07-25] MEDS: PANTOPRAZOLE 40 MG TABLET PO (08:30)
[2018-07-25] MEDS: POTASSIUM CITRATE PO ×4 (08:30→21:28)
[2018-07-25] MEDS: TRIAMCINOLONE 0.1% CREAM 15 GM 1 APPLIC TOP ×2 (08:31→21:29)
[2018-07-25] MEDS: ENOXAPARIN 40 MG/0.4 ML SYRINGE SUBCUT (08:48)
--- NOTE | 2018-07-25 10:35 | P.PN_ITS ---
Subjective Date Patient Seen: 07/25/18 Time Patient Seen: 10:32 Interval history: Patient continues to feel better on a daily basis. He is having essentially almost no pain now. Ambulating throughout the halls unassisted without any problems. No subjective fever chills. No chest pain or shortness of breath. Continues to pass flatus and semi solid stool. Tolerating full liquid diet yesterday without any issues. No nausea or vomiting. Lee catheter remains in place. Mildly concerned about his elevated blood pressure last night. However, denies any headaches or dizziness. Exam Vital Signs (past 8 hours): - 07/25/18 04:00 07/25/18 08:00 07/25/18 08:42 Temperature 98.6 F 98.4 F Pulse Rate 54 L 73 Respiratory Rate 18 18 Blood Pressure 127/68 148/90 H Pulse Oximetry 93 94 96 Fraction of Inspired Oxygen 21 Oxygen Delivery Method Room Air Oxygen Flow Rate 0 Narrative Exam Narrative: Well-nourished well-developed male sitting comfortably in bed in no acute distress. He was walking in the hallways at the time I entered the unit today. Alert oriented x3 chest clear to auscultation. Regular rate and rhythm. No wheezes abdomen soft, nondistended, no masses. He is minimally tender to deep palpation only in the suprapubic region and certainly has no guarding or rebound. extremities show no clubbing or cyanosis Objective Labs Result Diagrams: 07/25/18 05:38 07/25/18 05:38 Labs: Laboratory Results - last 24 hr 07/25/18 07/25/18 05:38 05:38 WBC 6.6 RBC 4.07 L Hgb 12.2 L Hct 36.4 L MCV 89.3 MCH 30.0 MCHC 33.6 RDW 14.5 Plt Count 186 Neut % (Auto) 67.8 Lymph % (Auto) 16.5 L Graham % (Auto) 10.8 Eos % (Auto) 4.0 Baso % (Auto) 0.9 Neut # (Auto) 4500 Lymph # (Auto) 1100 Graham # (Auto) 700 Eos # (Auto) 300 Baso # (Auto) 100 Sodium 139 Potassium 3.6 Chloride 106 Carbon Dioxide 27 BUN 5 L Creatinine 0.80 Estimated GFR > 60.0 BUN/Creatinine Ratio 6.3 Glucose 98 Calcium 8.3 L Assessment & Plan Assessment & Plan narrative: 68-year-old male with improving diverticulitis. He continues to have issues with urinary retention. I will continue the Lee for 1 more day. Trial of removing the Lee tomorrow. Advance to low residue diet today. Saline lock IV. Up and ambulatory as tolerated. He understands he may run into issues again with urinary retention after removing the Lee tomorrow. If so, we will reinsert the Lee in plan to discharge him home with a leg bag. In the interim he will continue his usual home medications as previously ordered. I anticipate another 24-48 hours of IV antibiotics and home on oral antibiotic regimen likely July 27, 2018 if he remains stable. All questions were answered to his satisfaction, and he voiced understanding. Orders were written.
--- NOTE | 2018-07-25 11:50 | PC.NURSE ---
Shift summary: Awake and alert, oriented X3. Up independently, walking frequently in halls and is steady on his feet. Denies abd pain, N/V or any other complaint. He would love to go home today, but understands and is agreeable to following Dr Plata's POC. Tolerating full liquids at breakfast and has been advanced to low fiber/residue starting at lunch today. Abdomen soft, nontender. BT+, flatus+. Passing small loose stools fairly frequently. IVF TKO, site in L wrist WNL. Lee to gravity, urine clear yellow. Able to make needs known and calls appropriately. Light in reach.
[2018-07-25] MEDS: SIMVASTATIN 40 MG TABLET PO (17:01)
[2018-07-25] MEDS: LATANOPROST 0.005% OPHTH 2.5 ML 1 DROPS EYE-BOTH (21:29)
[2018-07-26] VITALS (9 sets, daily range): BP systolic 129–156; BP diastolic 61–85; PULSE 67–91; RESP 15–18; TEMP 36.4–37.1; O2SAT 95–98
[2018-07-26] MEDS: metroNIDAZOLE 500 MG/100 ML PIGGYBACK 100 MG IV ×3 (00:38→16:09)
[2018-07-26] MEDS: PIPERACILLIN-TAZO 3.375 GM/50 ML FROZ.PIGGY IV ×4 (02:04→20:48)
[2018-07-26] MEDS: SODIUM CHLORIDE 0.9% FLUSH 10 ML IV (08:41)
[2018-07-26] MEDS: DOXAZOSIN 4 MG TABLET 8 MG PO (08:42)
[2018-07-26] MEDS: PANTOPRAZOLE 40 MG TABLET PO (08:42)
[2018-07-26] MEDS: ENOXAPARIN 40 MG/0.4 ML SYRINGE SUBCUT (08:42)
[2018-07-26] MEDS: POTASSIUM CITRATE PO ×4 (08:43→20:47)
[2018-07-26] MEDS: TRIAMCINOLONE 0.1% CREAM 15 GM 1 APPLIC TOP ×2 (08:43→20:49)
--- NOTE | 2018-07-26 08:43 | PM.PN.1 ---
Subjective Date Patient Seen: 07/26/18 Time Patient Seen: 08:43 Interval history: Patient denies any pain at this time. No nausea or vomiting. Tolerated a low residue diet yesterday without issue. No subjective fever or chills. Lee catheter remains in place. He continues to pass flatus and normal bowel movements without difficulty. No pain with defecation. Ambulating in the halls without any issues or assistance. No chest pain or shortness of breath Exam Vital Signs (past 8 hours): - 07/26/18 00:46 07/26/18 04:00 07/26/18 08:00 Temperature 97.7 F 97.8 F Pulse Rate 91 H 68 Respiratory Rate 18 16 Blood Pressure 141/77 H 147/81 H Pulse Oximetry 97 97 95 07/26/18 08:29 Temperature Pulse Rate Respiratory Rate Blood Pressure Pulse Oximetry 96 Fraction of Inspired Oxygen 21 Oxygen Delivery Method Room Air Oxygen Flow Rate 0 Narrative Exam Narrative: Well-nourished well-developed male sitting comfortably in bedside chair in no acute distress. Alert oriented x3. He is in good spirits No fevers. No tachycardia. Blood pressure normal. Adequate urine output in the Lee catheter. Urine is clear. Regular rate and rhythm. No wheezes. Abdomen soft, nondistended, nontender, no masses. He is completely nontender in the suprapubic region currently. Extremities show no clubbing or cyanosis Objective Labs Result Diagrams: 07/25/18 05:38 07/25/18 05:38 Labs: No new laboratory or radiographic studies for review today Assessment & Plan Assessment & Plan narrative: 68-year-old male with resolving diverticulitis. He has issues with urinary retention as well likely initially related to the inflammation of the sigmoid colon affecting the bladder. He has now been on his usual doxazosin for 2 days. His inflammation is clearly improving clinically. We will therefore discontinue the Lee today. He understands that if he again has issues with urinary retention the Lee catheter will need to be replaced and he will be discharged home with a catheter for at least 1 week. Would plan another 24 hr of IV antibiotics consisting of Zosyn and Flagyl currently while we also await his trial of spontaneously voiding. Tentatively planned discharge home tomorrow on oral Levaquin and Flagyl for another 7 days. Follow up with me in the surgery clinic next week. He will require outpatient colonoscopy in another 6 weeks or so once the acute inflammatory episode has resolved. I discussed all the above with the patient in detail. All questions were answered to his satisfaction, and he voiced understanding. Furthermore, he understands that I will be out of the hospital for the rest of the week beginning this morning. My associates will attend his care in my absence.
--- NOTE | 2018-07-26 15:02 | PC.NURSE ---
: Lee dc'd at 0900. Patient has voided multiple times since then and does not have any post-void urgency or frequency.
--- NOTE | 2018-07-26 16:20 | PC.NURSE ---
Addendum entered by Natasha Quesada R.N. 07/26/18 21:35: Pt condition remain essentially unchanged. Denies discomfort. Recieving IVPB ABOs HL intact/patent. Up ad silverio in room. Relatively uneventful evening. Call light w/in reach, bed alarm on for pt safety. Continue w/plan of care. Original Note: Pt sitting in chair, denies any discomfort Lungs clear, SpO2 97% RA IV ABO infusing w/o incidence. Denies any requests at this time. Call light w/in reach.
[2018-07-26] MEDS: SIMVASTATIN 40 MG TABLET PO (18:26)
[2018-07-26] MEDS: LATANOPROST 0.005% OPHTH 2.5 ML 1 DROPS EYE-BOTH (20:55)
[2018-07-27] MEDS: metroNIDAZOLE 500 MG/100 ML PIGGYBACK 100 MG IV ×2 (00:17→08:59)
[2018-07-27 00:34] VITALS: BP 130/66; PULSE 82; RESP 18; TEMP 36.6; O2SAT 97
[2018-07-27 01:01] VITALS: O2SAT 97
--- NOTE | 2018-07-27 01:03 | PC.NURSE ---
2300- Pt resting in bed, IV saline locked. Denies any pain or discomfort; on RA w/ stable sats. Denies nausea or vomiting. Moving indep in room; voiding in bathroom w/o difficulty. 0000- IV Flagyl hung per orders; VSS. Call light in reach.
[2018-07-27] MEDS: PIPERACILLIN-TAZO 3.375 GM/50 ML FROZ.PIGGY IV ×2 (03:06→09:59)
[2018-07-27 05:14] VITALS: BP 144/83; PULSE 61; RESP 16; TEMP 36.6; O2SAT 95
[2018-07-27 07:50] VITALS: BP 136/78; PULSE 76; RESP 20; TEMP 36.6; O2SAT 95
[2018-07-27 08:02] VITALS: O2SAT 97
[2018-07-27] MEDS: PANTOPRAZOLE 40 MG TABLET PO (08:44)
[2018-07-27] MEDS: DOXAZOSIN 4 MG TABLET 8 MG PO (08:44)
[2018-07-27] MEDS: ENOXAPARIN 40 MG/0.4 ML SYRINGE SUBCUT (08:44)
[2018-07-27] MEDS: POTASSIUM CITRATE PO (08:45)
[2018-07-27] MEDS: TRIAMCINOLONE 0.1% CREAM 15 GM 1 APPLIC TOP (08:46)
[2018-07-27] MEDS: SODIUM CHLORIDE 0.9% FLUSH 10 ML IV (08:47)
--- NOTE | 2018-07-27 10:57 | PC.NURSE ---
Day shift: Pt left unit at approx 1105. He did not want to go in a WC and is ambulating to private car with friend and BOX ATTACHER Lorena. Paperwork signed. All questions answered. Has meds from pharmacy. Also has all personal belongings.
--- NOTE | 2018-07-29 19:07 | P.DS_ITS ---
History of Present Illness Date Patient Seen: 07/27/18 Time Patient Seen: 09:01 Chief complaint: CRAMPS,CONSTIPATION,NOT URINATING Narrative: Mr. Molina is a pleasant gentleman who presented to the ED on the day of admission with compliant of constipation and abdominal pain. He was seen and evaluated in the ED and found to have acute diverticulitis. Dr. Plata was consulted for definitive management. Discharge Providers Date of admission: 07/20/18 14:58 Discharge Date: 07/27/18 Consults: 07/20/18 16:13 Consult to Discharge Planning Routine Comment: 07/21/18 08:31 Consult to Physical Therapy Evaluate & Treat Comment: Physician Instructions: Evaluate and Treat Discharge provider: Cecy Alcantara MD Summary Discharge Diagnosis: Acute diverticulitis Hospital Course: The patient was admitted to the hospital and started on IV antibiotics. He began to improve slowly. His pain responded quickly and after 24 hours on antibiotics, he required very little pain medication. At the time of discharge he is tolerating a low residue diet without difficulty and walking the halls unassisted. He is discharged to his home in the care of his family. He will follow up with our clinic in 1 week. He will need to scheduled for a colonoscopy as an outpatient Status at Discharge Cognitive/behavioral status at discharge: at baseline, oriented Functional status at discharge: independent ambulation Overall status at discharge: patient is progressing back to baseline Time Spent with Patient Less than 30 minutes Exam Vital Signs (past 8 hours): Fraction of Inspired Oxygen 21 Oxygen Delivery Method Room Air Oxygen Flow Rate 0 Objective Labs Result Diagrams: 07/25/18 05:38 07/25/18 05:38 Discharge Plan Discharge Plan Patient Disposition: Home Discharge Med Rec/Prescriptions Prescriptions: New metronidazole 500 mg tablet 500 mg PO QID Qty: 28 RF: 0 levofloxacin [Levaquin] 500 mg tablet 500 mg PO DAILY Qty: 7 RF: 0 docusate sodium [Colace] 100 mg capsule 200 mg PO DAILY Qty: 30 RF: 0 Continued latanoprost 0.005 % drops 1 drp EYE-BOTH BEDTIME RF: 0 ranitidine HCl 300 mg Tablet 300 mg PO BEDTIME RF: 0 triamcinolone acetonide 0.1 % cream 0.1 % topical BID RF: 0 simvastatin 40 mg Tablet 40 mg PO QPM RF: 0 doxazosin 8 mg tablet 8 mg PO DAILY RF: 0 potassium citrate 10 mEq (1,080 mg) Tablet Extended Release 10 meq PO QID RF: 0 pantoprazole [Protonix] 40 mg Tablet,Delayed Release (Dr/Ec) 40 mg PO DAILY RF: 0 Centrum Men 8 mg iron- 200 mcg-600 mcg Tablet 1 tab PO DAILY RF: 0 Discontinued Benefiber Clear SF (dextrin) 3 gram/3.5 gram Powder In Packet 1 packet PO DAILY RF: 0 Follow up/Referrals: Kelby Plata MD [Physician] - 1 Week (*appt:08/04 @ 2:[address] plata @ [facility] [phone] please arrive 15min prior to your scheduled appointment ) Provider Discharge Instructions Diet comment: Low Residue diet Activity: Do not lift more than 10 pounds Skin/Wound/Dressing Care Report to your healthcare provider any signs of infection, such as:: chills, fever, night sweats and increased pain Visit Report/Discharge Packet Instructions: Diverticulitis, Low-Fiber/Low-Residue Diet, DI for Diverticulitis, Stool Softeners, Metronidazole, Levofloxacin Discharge Data Attending Provider: Kelby Plata Admit Date/Time: 07/20/18 14:58 Discharges patient from system. Discharge Date/Time: 07/27/18 11:15
== END 2018-07-27 11:15 | disposition home or self-care (01) | DRG 392 ==
LOC: ED 14:45 → AC 14:59
PROVIDERS: Admitting Provider Surgery; Emergency Provider Emergency Medicine; Visit Provider Surgery
DX: K57.32 Diverticulitis of large intestine without perforation or abscess without bleeding (principal); K21.9 Gastro-esophageal reflux disease without esophagitis; E78.5 Hyperlipidemia, unspecified; Z87.891 Personal history of nicotine dependence; N26.1 Atrophy of kidney (terminal); N40.1 Benign prostatic hyperplasia with lower urinary tract symptoms; R33.8 Other retention of urine; R00.0 Tachycardia, unspecified
CPT/HCPCS: 36415; 51798; 74019; 74022; 74177; 80048; 80053; 81001; 83605; 83690; 85025; 93005; 94760; 96361; 96365; 96367; 96375; 96376; 97116; 97161; 99222; 99231; 99232; 99238; 99285; C9113; J1650; J2270; J2405; J2543; Q9967

== ENCOUNTER 2018-08-31 07:37 | Day surgery (SDC) | payer OTHER, SELFPAY ==
[2018-07-21 02:50] VITALS: BMI 28.9
[2018-08-31] VITALS (7 sets, daily range): BP systolic 104–117; BP diastolic 67–78; PULSE 78–119; RESP 15–17; TEMP 36.3–36.7; O2SAT 90–97
[2018-08-31] MEDS: SODIUM CHLORIDE 0.9% 1,000 ML 200 ML IV (08:10)
--- NOTE | 2018-08-31 08:46 | PM.HP.1 ---
History of Present Illness Date Patient Seen: 08/31/18 Time Patient Seen: 08:47 Chief complaint: [id number] Narrative: Patient has a history of recent diverticulitis. Last colonoscopy was over 10 years ago. He is brought in for an exam. Patient History Medical History (Updated 08/31/18 @ 08:47 by Idris Montalvo MD) Cough (Acute) Enlarged prostate (Acute) Frozen shoulder (Acute ~2013) History of urinary frequency (Acute) Pre-diabetes (Acute) History of diverticulitis (Resolved) Atrophic kidney, acquired (Acute) Benign prostatic hyperplasia (Acute) Diverticulitis (Acute) GERD (gastroesophageal reflux disease) (Acute) Hyperlipidemia (Acute) Kidney stones (Acute) Surgical History History of appendectomy (Acute ~1964) History of colonoscopy (Acute) History of umbilical hernia repair (Acute ~1978) Status post cholecystectomy (Acute ~1978) Family History Mother Heart disease Gallstones Social History household members: spouse Smoking Status: Former smoker alcohol intake: never Family & Social History Family History Mother Heart disease Gallstones Social History: household members spouse Tobacco & Substance use: Smoking Status Former smoker alcohol intake never alcohol intake frequency other Substance Use Type does not use Meds Home Medications Medication Instructions Recorded Confirmed Type Centrum Men 1 tab PO DAILY 07/20/18 08/31/18 History doxazosin 8 mg PO DAILY 07/20/18 08/31/18 History latanoprost 1 drp EYE-BOTH BEDTIME 07/20/18 08/31/18 History pantoprazole [Protonix] 40 mg PO DAILY 07/20/18 08/31/18 History potassium citrate 10 meq PO QID 07/20/18 08/31/18 History ranitidine HCl 300 mg PO BEDTIME 07/20/18 08/31/18 History simvastatin 40 mg PO QPM 07/20/18 08/31/18 History triamcinolone acetonide 0.1 % TOPICAL BID 07/20/18 08/31/18 History docusate sodium [Colace] 200 mg PO DAILY #30 cap 07/27/18 08/31/18 Rx Allergies Allergy/AdvReac Type Severity Reaction Status Date / Time No Known Drug Allergies Allergy Verified 08/31/18 07:58 Review of Systems Review of Systems Doing well. no chest pain. No breathing issues at this time. No black or bloody bowel movements. He does have reflux. He has had his gallbladder out in the past. He has enlarged prostate. Exam Vital Signs (past 8 hours): - 08/31/18 08:10 Temperature 97.3 F L Pulse Rate 119 H Respiratory Rate 15 Blood Pressure 117/78 Pulse Oximetry 94 Oxygen Delivery Method Room Air Narrative Exam Narrative: Operative no apparent distress. Eyes are nonicteric lungs are clear no rales or rhonchi. Abdomen is soft nontender without masses. Heart regular rate and rhythm without murmur gallop. Alert and oriented x3. Assessment & Plan Assessment & Plan narrative: Patient for screening exam/evaluation of diverticulitis to rule out a a lesion as the source of that problem. I have discussed the procedure and the rationale with the patient including risks of bleeding, perforation which would necessitate a major operation, failure to find remove all lesions and the potential to tattoo. They appeared to understand and wished to proceed.
--- NOTE | 2018-08-31 08:50 | PM.PREOP ---
Pre-operative Note Interval Note History & Physical reviewed/Exam performed by Physician: Yes Changes to H&P: No ASA Class (for procedural sedation): II
[2018-08-31] MEDS: MIDAZOLAM 5 MG/5 ML VIAL IV (09:00)
[2018-08-31] MEDS: fentaNYL 250 MCG/5 ML INJ IV (09:00)
--- NOTE | 2018-08-31 09:13 | PM.OP.ENDO ---
Operative Date/Time/Diagnoses Date of procedure: 08/31/18 Time of procedure: 09:13 Pre-op diagnosis: History of diverticulitis. Last colonoscopy 10 years ago. Screening exam. Post-op diagnosis: same (Extensive becerra colonic diverticulosis. Mild sigmoid narrowing. No strictures.) Procedure & Clinicians Study performed: Colonoscopy Same procedure as scheduled: Yes Indications: Screening. History of diverticulitis. Surgeon: Idris Montalvo Procedure Notes SCOAP/Timeout: Performed Procedure in detail: The patient was placed in the left lateral decubitus position and underwent IV sedation directed by the surgeon consisting of fentanyl and Versed. Digital exam was remarkable for an enlarged prostate. The scope was inserted and advanced through the rectum into the sigmoid, descending, transverse, and ascending colon. Patient had extensive diverticulosis especially in the sigmoid colon. But it went throughout the colon.. The cecum was reached identified by the ileocecal valve and the appendiceal opening. The scope was gradually brought out. No Polyps were found. The scope ultimately was retroflexed in the rectum. The appearance was remarkable for mild internal hemorrhoids without ulceration. The scope was removed and the patient tolerated the procedure well. prep was very good. Scope withdrawal time: 8 minutes Sedation minutes: 17 Findings: diverticulosis (Becerra colonic) Specimen(s): none sent Complications: none Recommendations: Colonscopy in 10 years (If you are in good health) Follow up: as needed Disposition: PACU
== END 2018-08-31 09:53 | disposition home or self-care (01) ==
PROVIDERS: PCP Physician Assistant; Visit Provider Specialist
PROC: 0DJD8ZZ Inspection of Lower Intestinal Tract, Via Natural or Artificial Opening Endoscopic (ICD-10-PCS; CPT 45378; principal; 2018-08-31 08:45)
DX: Z12.11 Encounter for screening for malignant neoplasm of colon (principal); Z87.19 Personal history of other diseases of the digestive system; K64.8 Other hemorrhoids; R73.03 Prediabetes; N40.0 Benign prostatic hyperplasia without lower urinary tract symptoms; K57.30 Diverticulosis of large intestine without perforation or abscess without bleeding
CPT/HCPCS: G0121; 99152; J2250; J3010

== ENCOUNTER 2024-04-28 10:08 | Emergency (ER) | payer OTHER, SELFPAY ==
[2018-07-21 02:50] VITALS: BMI 28.9
[2024-04-28] VITALS (7 sets, daily range): BP systolic 111–135; BP diastolic 58–79; PULSE 63–95; RESP 14–24; TEMP 36.7; O2SAT 95–96; BMI 26.6
--- NOTE | 2024-04-28 10:22 | DI.RAD.S_ITS ---
PROCEDURE: XR LUMBAR SPINE 2-3V INDICATIONS: Fall with low back pain TECHNIQUE: 3 views of the lumbar spine were acquired. COMPARISON: None. FINDINGS: Bones: 5 [id number] vertebrae are present. Mild retrolisthesis of L2 on L3, L3 on L4 and L4 on L5.. No vertebral body compression fractures. No suspicious bony lesions. There is multilevel facet arthropathy, worse at L4-5 and L5-S1. Multilevel disc height loss with degenerative endplate changes and spurring is present. Soft tissues: Overlying bowel gas pattern is normal. No suspicious soft tissue calcifications. Atherosclerotic vascular calcifications. IMPRESSION: Moderate multilevel degenerative changes of the lumbar spine. No vertebral body compression deformities. Dictated by: Rafael Deras M.D. on 04/28/2024 at 11:08 Approved by: Rafael Deras M.D. on 04/28/2024 at 11:09
--- NOTE | 2024-04-28 10:22 | DI.RAD.S_ITS ---
PROCEDURE: XR SACRUM COCCYX MIN 2V INDICATIONS: Fall with low back pain TECHNIQUE: 3 views of the sacrum and coccyx acquired. COMPARISON: None. FINDINGS: Bones: No fractures or dislocations. No suspicious bony lesions. Soft tissues: Visualized bowel gas pattern is normal. No suspicious soft tissue densities. IMPRESSION: No acute osseous abnormality. If pain persists with conservative management, consider repeat x-ray in 10-14 days or cross-sectional imaging. Dictated by: Rafael Deras M.D. on 04/28/2024 at 11:09 Approved by: Rafael Deras M.D. on 04/28/2024 at 11:10
--- NOTE | 2024-04-28 10:25 | EKG_ITS ---
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
--- NOTE | 2024-04-28 11:00 | ED.GENADULT ---
HPI - General Adult General Chief complaint: Syncope Stated complaint: Fell hurt tail bone Time Seen by Provider: 04/28/24 10:45 Source: patient Mode of arrival: Ambulatory Limitations: no limitations History of Present Illness HPI narrative: Patient is a 73-year-old male. Just over 24 hours ago the patient was up at approximately 0315 in the morning. He walked to go use the restroom and had an episode where he passed out. No seizure activity. He was never had a seizure. Did not injure his arms and legs. Prior to passing out he did not have chest pain or shortness of breath or palpitations. Since that time he was had lower back discomfort with changing positions to include going from sitting to standing and from lying to sitting. When he was station area or when he was walking he does not have discomfort. No numbness or tingling to his legs. Related Data Home Medications Medication Instructions Recorded Confirmed doxazosin 8 mg tablet 8 mg PO DAILY 07/20/18 03/30/24 latanoprost 0.005 % eye drops 1 drp EYE-BOTH BEDTIME 07/20/18 03/30/24 multivit,Ca,min-iron 8 mg-folic 1 tab PO DAILY 07/20/18 03/30/24 acid 200 mcg-lycopene 600 mcg tablet (Centrum Men) potassium citrate 10 mEq (1,080 10 meq PO QID 07/20/18 03/30/24 mg) tablet,extended release simvastatin 40 mg tablet 40 mg PO QPM 07/20/18 03/30/24 finasteride 5 mg tablet 5 mg PO DAILY 03/23/24 03/30/24 Previous Rx's Medication Instructions Recorded pantoprazole 40 mg tablet,delayed 40 mg PO DAILY #90 tabs 03/30/24 release (Protonix) Allergies Allergy/AdvReac Type Severity Reaction Status Date / Time No Known Drug Allergies Allergy Verified 04/28/24 10:15 Review of Systems Review of Systems Narrative: See HPI Patient History Medical History Measles Chicken pox Vertigo Glaucoma Cataracts, bilateral Hernia Skin cancer History of diverticulitis Frozen shoulder (~2013) History of urinary frequency Enlarged prostate Pre-diabetes Cough Benign prostatic hyperplasia Diverticulitis Atrophic kidney, acquired Kidney stones GERD (gastroesophageal reflux disease) Hyperlipidemia Surgical History (Updated 12/27/23 @ 18:12 by Ilsa Wilson) Anesthesia History of shoulder surgery History of umbilical hernia repair (~1978) History of appendectomy (~1964) History of colonoscopy Status post cholecystectomy (~1978) Family History Mother Heart disease Gallstones Social History household members: spouse Smoking Status: Former smoker alcohol intake: never Smoking Status: Former smoker alcohol intake frequency: other Exam Initial Vital Signs Initial Vital Signs: Vital Signs Temperature 98.1 F 04/28/24 10:15 Pulse Rate 90 04/28/24 10:15 Respiratory Rate 14 04/28/24 10:15 Blood Pressure 135/58 L 04/28/24 10:15 Pulse Oximetry 95 04/28/24 10:15 Oxygen Delivery Method Room Air 04/28/24 10:15 Const General: cooperative, comfortable and No ill appearing HENMT Head: normal to inspection and normocephalic Resp Effort & Inspection: normal respiratory effort Auscultation: clear to auscultation bilaterally Cardio Rate: regular rate Rhythm: regular rhythm Back/Spine/Pelvis Cervical Spine: No cervical spinal tenderness Thoracic/Lumbar Spine: No paraspinal tenderness, No thoracic spinal tenderness and No lumbar spinal tenderness Skin General: no rashes or lesions noted Neuro General: patient alert, patient awake and moves all extremities Extrem General: capillary refill normal Course Orders Ordered: ED Orders 04/28/24 10:19 EKG-12 Lead Stat 04/28/24 10:22 XR lumbar spine 2-3V Stat XR sacrum coccyx min 2V Stat 04/28/24 10:58 Complete Blood Count AUTO DIFF Stat Comprehensive Metabolic Panel Stat Lipase Stat Magnesium Stat Vital Signs Vital signs: Vital Signs - 8 hr 04/28/24 10:15 04/28/24 10:56 04/28/24 10:56 Temperature 98.1 F Pulse Rate 90 63 Respiratory Rate 14 Blood Pressure 135/58 L 120/68 Pulse Oximetry 95 96 Oxygen Delivery Method Room Air 04/28/24 11:00 04/28/24 11:00 04/28/24 11:30 Temperature Pulse Rate 90 Respiratory Rate 19 Blood Pressure 133/79 111/66 Pulse Oximetry 96 Oxygen Delivery Method 04/28/24 11:30 04/28/24 12:09 04/28/24 12:10 Temperature Pulse Rate 95 H Respiratory Rate 17 24 Blood Pressure Pulse Oximetry 95 96 95 Oxygen Delivery Method 04/28/24 12:10 Temperature Pulse Rate Respiratory Rate Blood Pressure 120/77 Pulse Oximetry Oxygen Delivery Method Medical Decision Making Lab Data Lab results reviewed: Yes I reviewed the patient's lab results. 04/28/24 10:58 04/28/24 10:58 Labs: Lab Results 04/28/24 Range/Units 10:58 WBC 7.1 (4.5-11.0) X10^3/uL RBC 4.76 (4.5-5.9) X10^6/uL Hgb 14.4 (13.5-17.5) g/dL Hct 43.0 (41-53) % MCV 90.3 (80-100) fL MCH 30.3 (26-34) PG MCHC 33.5 (30-36) % RDW 14.4 (11.6-14.8) % Plt Count 189 (150-400) X10^3/uL Neut % (Auto) 72.9 (50-75) % Lymph % (Auto) 13.9 L (25-40) % Wilcox % (Auto) 11.6 (3-14) % Eos % (Auto) 1.1 L (2-4) % Baso % (Auto) 0.5 (0-2) % Neut # (Auto) 5200 (4445-0433) /uL Lymph # (Auto) 1000 L (5223-2086) /uL Wilcox # (Auto) 800 (0-900) /uL Eos # (Auto) 100 (0-450) /uL Baso # (Auto) 0 (0-100) /uL Sodium 136 L (137-145) mmol/L Potassium 4.3 (3.4-5.1) mmol/L Chloride 104 (98-107) mmol/L Carbon Dioxide 26 (22-32) mmol/L BUN 13 (9-20) mg/dL Creatinine 1.06 (0.66-1.25) mg/dL Estimated GFR > 60 (>60) mL/min BUN/Creatinine Ratio 12.3 (6-22) Glucose 118 H (80-110) mg/dL Calcium 9.3 (8.4-10.2) mg/dL Magnesium 2.1 (1.6-2.3) mg/dL Total Bilirubin 0.5 (0.2-1.3) mg/dL AST 41 (17-59) IU/L ALT 33 (<50) IU/L Alkaline Phosphatase 55 (38-126) U/L Total Protein 7.0 (6.3-8.2) g/dL Albumin 4.3 (3.5-5.0) g/dL Globulin 2.7 (1.7-4.1) g/dL Albumin/Globulin Ratio 1.6 (1.0-2.8) Lipase 25 (23-300) U/L Imaging Data XR lumbar: Radiologist's Impression: PROCEDURE: XR LUMBAR SPINE 2-3V INDICATIONS: Fall with low back pain TECHNIQUE: 3 views of the lumbar spine were acquired. COMPARISON: None. FINDINGS: Bones: 5 [id number] vertebrae are present. Mild retrolisthesis of L2 on L3, L3 on L4 and L4 on L5.. No vertebral body compression fractures. No suspicious bony lesions. There is multilevel facet arthropathy, worse at L4-5 and L5-S1. Multilevel disc height loss with degenerative endplate changes and spurring is present. Soft tissues: Overlying bowel gas pattern is normal. No suspicious soft tissue calcifications. Atherosclerotic vascular calcifications. IMPRESSION: Moderate multilevel degenerative changes of the lumbar spine. No vertebral body compression deformities. XR scarum: Radiologist's Impression: PROCEDURE: XR SACRUM COCCYX MIN 2V INDICATIONS: Fall with low back pain TECHNIQUE: 3 views of the sacrum and coccyx acquired. COMPARISON: None. FINDINGS: Bones: No fractures or dislocations. No suspicious bony lesions. Soft tissues: Visualized bowel gas pattern is normal. No suspicious soft tissue densities. IMPRESSION: No acute osseous abnormality. If pain persists with conservative management, consider repeat x-ray in 10-14 days or cross-sectional imaging. ECG Data Attestation: I personally reviewed and interpreted this ECG as follows: Interpretation: Sinus rhythm Ventricular rate of 89 Occasional PVC Normal QRS No ST T wave changes MDM Narrative Medical decision making narrative: Patient has discomfort only comes when he was change in positions. He can ambulate. No urinary symptoms. No focal neurologic deficits. X-rays show no fractures. We discussed the use of Tylenol. No indication for admission to the hospital. He was given return precautions and follow-up instructions. He expressed understanding and agreement. Discharge Plan Departure Patient Disposition: Home Clinical Impression: Low back pain, Syncope Instructions: Fainting, DI for Low Back Pain Activity Restrictions/Additional Instructions: Continue to take all of your medications as directed. Contact your primary care doctor for a follow-up. Return to the emergency department for new or worsening symptoms. Prescriptions: No Action finasteride 5 mg tablet 5 mg PO DAILY pantoprazole [Protonix] 40 mg tablet,delayed release (DR/EC) 40 mg PO DAILY Qty: 90 1RF latanoprost 0.005 % drops 1 drp EYE-BOTH BEDTIME simvastatin 40 mg Tablet 40 mg PO QPM doxazosin 8 mg tablet 8 mg PO DAILY potassium citrate 10 mEq (1,080 mg) Tablet Extended Release 10 meq PO QID Centrum Men 8 mg iron- 200 mcg-600 mcg Tablet 1 tab PO DAILY Referrals: Alexia Sharma DO [Primary Care Provider] - Stand Alone Forms: Patient Portal/API/Survey
--- NOTE | 2024-04-28 11:03 | PC.NURSE ---
Addendum entered by Navya Vasquez R.N. 04/28/24 11:05: Pt reports sitting and standing are okay but with any movement he feels pain. Original Note: Pt states after urination he felt faint and passed out. Pt states he landed on his tailbone. Denies N/V or chest pain. Pt states he came in to ER d/t tailbone pain persisting.
[2024-04-28 11:10] LABS: Add Manual Diff / Slide Review NO; Basophils Absolute Auto 0 /uL (0-100); Basophils Percent Auto 0.5 % (0-2); Eosinophils Absolute Auto 100 /uL (0-450); Eosinophils Percent Auto 1.1 % (2-4); Hemoglobin 14.4 g/dL (13.5-17.5); Lymphocytes Absolute Auto 1000 /uL (1100-4500); Lymphocytes Percent Auto 13.9 % (25-40); Mean Corpuscular HGB Conc 33.5 % (30-36); Mean Corpuscular Hemoglobin 30.3 PG (26-34); Mean Corpuscular Volume 90.3 fL (80-100); Monocytes Absolute Auto 800 /uL (0-900); Monocytes Percent Auto 11.6 % (3-14); Neutrophils Absolute Auto 5200 /uL (1500-7000); Neutrophils Percent Auto 72.9 % (50-75); Platelet Count 189 X10^3/uL (150-400); Red Blood Cell Count 4.76 X10^6/uL (4.5-5.9); Red Cell Distribution Width 14.4 % (11.6-14.8); White Blood Cell Count 7.1 X10^3/uL (4.5-11.0)
[2024-04-28 11:20] LABS: Alanine Aminotransferase 33 IU/L (<50); Albumin 4.3 g/dL (3.5-5.0); Albumin Globulin Ratio 1.6 (1.0-2.8); Alkaline Phosphatase 55 U/L (38-126); Aspartate Aminotransferase 41 IU/L (17-59); BUN Creatinine Ratio 12.3 (6-22); Bilirubin Total 0.5 mg/dL (0.2-1.3); Blood Urea Nitrogen 13 mg/dL (9-20); Calcium 9.3 mg/dL (8.4-10.2); Carbon Dioxide 26 mmol/L (22-32); Chloride 104 mmol/L (98-107); Estimated Glomerular Filt Rate > 60 mL/min (>60); Globulin 2.7 g/dL (1.7-4.1); Glucose 118 mg/dL (80-110); HEMOLYSIS < 15 (0-50); Lipase 25 U/L (23-300); Magnesium 2.1 mg/dL (1.6-2.3); Potassium 4.3 mmol/L (3.4-5.1); Sodium 136 mmol/L (137-145)
== END 2024-04-28 12:48 | disposition home or self-care (01) ==
PROVIDERS: Emergency Provider Emergency Medicine; PCP Family Medicine
DX: R55 Syncope and collapse (principal); M54.50 Low back pain, unspecified
CPT/HCPCS: 36415; 72100; 72220; 80053; 83690; 83735; 85025; 93005; 99283; 99284